=== PATIENT | female | born 1980 | race African-American/Black ===

== ENCOUNTER 2016-09-23 11:43 | Emergency (ER) | payer MEDICAID ==
[2013-08-03 15:59] VITALS: BMI 23.9
[~2016-09-23 11:43] MED LIST: IBUPROFEN600 MG PO; NORCO 5/325 TAB1 TA1 PO; PHENERGAN25 M1 PO; PHENERGAN25 MG RC; PRENATAL COMPLE1 TAB PO; TRANDATE100 MG PO; ZOFRAN ODT4 MG/UDTAB PO; ZOFRAN4 MG PO
== END 2016-09-23 15:41 | disposition home or self-care (01) ==
LOC: D.ER 11:43
DX: O21.9 Vomiting of pregnancy, unspecified (principal); E87.6 Hypokalemia

== ENCOUNTER 2016-09-26 10:33 | Emergency (ER) | payer MEDICAID ==
[2013-08-03 15:59] VITALS: BMI 23.9
[2016-09-26 11:45] LABS: BASOPHILS 0.2 % (0.0-2.0); EOSINOPHILS 0.6 % (0-7); HEMATOCRIT 30.6 % (36.0-48.0); HEMOGLOBIN 9.5 g/dL (12-16); IMMATURE GRANULOCYTES 0.2 % (0-5); LYMPHOCYTES 11.3 % (15-50); MCH 24.1 pg (26.0-34.0); MCV 77.7 fL (80.0-100.0); MEAN PLATELET VOLUME 9.7 fL (7.4-10.4); MONOCYTES 2.5 % (2-11); NEUTROPHILS 85.2 % (40-80); PLATELET COUNT 266 10x3/uL (130-400); RBC 3.94 10x6/uL (4.00-5.40); RDW 20.7 % (11.5-14.5); WBC 11.3 10x3/uL (4.8-10.8)
[2016-09-26 11:56] LABS: CALC OSMOLALITY 267 mosm/kg (275-300); CALCIUM 8.9 mg/dL (8.5-10.1); CHLORIDE - SERUM 103 mmol/L (98-107); CREATININE - SERUM 0.7 mg/dL (0.6-1.3); SODIUM 136 mmol/L (136-145); UREA NITROGEN 5 mg/dL (7-18); eGFR NON AFRICAN AMERICAN > 90 mL/min (90-120)
[2016-09-26 12:00] LABS: GLUCOSE 87 mg/dL (74-106)
[2016-09-26 12:11] LABS: APPEARANCE SLT CLOUDY (CLEAR); COLOR YELLOW (YELLOW)
[2016-09-26 12:12] LABS: BILIRUBIN NEGATIVE (NEGATIVE); GLUCOSE NEGATIVE (NEGATIVE); KETONE NEGATIVE (NEGATIVE); LEUKOCYTE ESTERASE 1+ (NEGATIVE); NITRITE NEGATIVE (NEGATIVE); PROTEIN NEGATIVE (NEGATIVE); UROBILINOGEN NORMAL (NORMAL)
[2016-09-26 12:13] LABS: BACTERIA MANY /hpf (NONE SEEN); MUCUS >1+ /lpf (NONE SEEN)
== END 2016-09-26 13:53 | disposition home or self-care (01) ==
LOC: D.ER 10:33
PROVIDERS: Emergency Medicine Emergency Medical Services
DX: R11.10 Vomiting, unspecified (principal); Z3A.08 8 weeks gestation of pregnancy

== ENCOUNTER 2017-10-27 17:53 | Emergency (ER) | payer MEDICAID ==
[2013-08-03 15:59] VITALS: BMI 23.9
== END 2017-10-27 21:30 | disposition home or self-care (01) ==
LOC: D.ER 17:53
DX: B34.9 Viral infection, unspecified (principal); J06.9 Acute upper respiratory infection, unspecified

== ENCOUNTER 2018-05-26 15:59 | Emergency (ER) | payer MEDICAID ==
[~2018-05-26] VITALS: Ht 167.6 cm; Wt 62.3 kg
[2018-05-26 16:33] VITALS: Ht 167.6 cm; Wt 62.3 kg
[2018-05-26 18:15] VITALS: BP 165/114
== END 2018-05-26 18:15 | disposition left against medical advice (07) ==
LOC: D.ER 15:59
DX: I10 Essential (primary) hypertension (principal); F91.9 Conduct disorder, unspecified; Z85.41 Personal history of malignant neoplasm of cervix uteri

== ENCOUNTER 2019-04-12 12:09 | Emergency (ER) | payer MEDICAID ==
[~2019-04-12] VITALS: Ht 167.6 cm; Wt 61.8 kg
[2019-04-12 12:43] VITALS: Ht 167.6 cm; Wt 61.8 kg
[2019-04-12 13:02] LABS: BASOPHILS 0.3 % (0-2); EOSINOPHILS 1.9 % (0-7); HEMATOCRIT 28.4 % (36.0-48.0); IMMATURE GRANULOCYTES 0.2 % (0-5); LYMPHOCYTES 22.2 % (15-50); MCH 22.7 pg (26.0-34.0); MCHC 31.7 g/dL (31.0-37.0); MCV 71.5 fL (80.0-100.0); MEAN PLATELET VOLUME 8.6 fL (7.4-10.4); MONOCYTES 4.3 % (2-11); NEUTROPHILS 71.1 % (40-80); PLATELET COUNT 264 10x3/uL (130-400); RBC 3.97 10x6/uL (4.00-5.40); WBC 6.5 10x3/uL (4.8-10.8)
[2019-04-12 13:32] LABS: HCG SERUM POSITIVE (NEGATIVE)
[2019-04-12 13:45] LABS: ALBUMIN 3.9 g/dL (3.4-5.0); ALKALINE PHOSPHATASE 51 U/L (46-116); ALT (SGPT) 16 U/L (10-68); BILIRUBIN - TOTAL 0.45 mg/dL (0.2-1.3); CALC OSMOLALITY 271 mosm/kg (275-300); CALCIUM 8.6 mg/dL (8.5-10.1); CARBON DIOXIDE 24.4 mmol/L (21.0-32.0); CHLORIDE - SERUM 104 mmol/L (98-107); CREATININE - SERUM 0.9 mg/dL (0.6-1.3); GLUCOSE 82 mg/dL (74-106); POTASSIUM - SERUM 3.8 mmol/L (3.5-5.1); PROTEIN - SERUM 7.7 g/dL (6.4-8.2); SODIUM 137 mmol/L (136-145); UREA NITROGEN 10 mg/dL (7-18); eGFR NON AFRICAN AMERICAN 75 mL/min (90-120)
[2019-04-12 13:48] LABS: AMYLASE - SERUM 98 U/L (25-115); LIPASE 241 U/L (73-393); TROPONIN-I < 0.017 ng/mL (0.000-0.060)
[2019-04-12 16:23] LABS: APPEARANCE CLEAR (CLEAR); COLOR YELLOW (YELLOW); SPECIFIC GRAVITY 1.015 (1.005-1.020)
[2019-04-12 16:24] LABS: BILIRUBIN NEGATIVE (NEGATIVE); GLUCOSE NEGATIVE (NEGATIVE); KETONE MODERATE mg/dL (NEGATIVE); NITRITE NEGATIVE (NEGATIVE); PROTEIN NEGATIVE (NEGATIVE); UROBILINOGEN NORMAL (NORMAL)
[2019-04-12 16:25] LABS: BACTERIA FEW /hpf (NONE SEEN); EPITHELIAL CELLS OCC /hpf (0-5); WHITE CELLS - URINE OCC /hpf (0-5)
[2019-04-12 17:59] VITALS: BP 171/111
== END 2019-04-12 17:25 | disposition home or self-care (01) ==
LOC: D.ER 12:09
PROVIDERS: Family Medicine
DX: Z32.01 Encounter for pregnancy test, result positive (principal)

== ENCOUNTER 2019-04-20 08:54 | Emergency (ER) | payer MEDICAID ==
[~2019-04-20] VITALS: Ht 167.6 cm; Wt 62.3 kg
[2019-04-20 09:00] VITALS: Ht 167.6 cm; Wt 62.3 kg
[2019-04-20 09:29] LABS: BASOPHILS 0.3 % (0-2); EOSINOPHILS 1.8 % (0-7); HEMOGLOBIN 9.5 g/dL (12-16); IMMATURE GRANULOCYTES 0.1 % (0-5); LYMPHOCYTES 20.9 % (15-50); MCH 23.2 pg (26.0-34.0); MCHC 31.7 g/dL (31.0-37.0); MCV 73.2 fL (80.0-100.0); MEAN PLATELET VOLUME 9.5 fL (7.4-10.4); NEUTROPHILS 74.9 % (40-80); PLATELET COUNT 297 10x3/uL (130-400); RDW 21.1 % (11.5-14.5); WBC 7.6 10x3/uL (4.8-10.8)
[2019-04-20 09:45] LABS: APPEARANCE HAZY (CLEAR); BILIRUBIN NEGATIVE (NEGATIVE); COLOR YELLOW (YELLOW); GLUCOSE NEGATIVE (NEGATIVE); KETONE NEGATIVE (NEGATIVE); NITRITE NEGATIVE (NEGATIVE); PROTEIN NEGATIVE (NEGATIVE); SPECIFIC GRAVITY 1.015 (1.005-1.020); UROBILINOGEN NORMAL (NORMAL)
[2019-04-20 09:47] LABS: BACTERIA FEW /hpf (NONE SEEN); EPITHELIAL CELLS 0-5 /hpf (0-5); MUCUS <1+ /lpf (NONE SEEN); RED CELLS - URINE 0-5 /hpf (0-5); WHITE CELLS - URINE 0-5 /hpf (0-5)
[2019-04-20] MEDS ORDERED: FERROUS GLUCON324 MG PO (10:45)
[2019-04-20 12:10] VITALS: BP 140/97
== END 2019-04-20 11:58 | disposition home or self-care (01) ==
LOC: D.ER 08:54
PROVIDERS: Emergency Medicine
DX: O20.0 Threatened abortion (principal); Z3A.00 Weeks of gestation of pregnancy not specified; D50.8 Other iron deficiency anemias; A59.9 Trichomoniasis, unspecified

== ENCOUNTER 2019-05-04 09:58 | Emergency (ER) | payer MEDICAID ==
[~2019-05-04] VITALS: Ht 167.6 cm; Wt 60.5 kg
[~2019-05-04 09:58] MED LIST changes: +FERROUS GLUCON324 MG PO
[2019-05-04 10:15] VITALS: Ht 167.6 cm; Wt 60.5 kg
[2019-05-04] MEDS ORDERED: PRENAVITE1 TAB PO (10:17)
[2019-05-04 10:45] LABS: BASOPHILS 0.3 % (0-2); EOSINOPHILS 1.4 % (0-7); HEMATOCRIT 28.4 % (36.0-48.0); IMMATURE GRANULOCYTES 0.1 % (0-5); LYMPHOCYTES 19.7 % (15-50); MCH 23.1 pg (26.0-34.0); MCHC 31.7 g/dL (31.0-37.0); MEAN PLATELET VOLUME 9.3 fL (7.4-10.4); NEUTROPHILS 74.5 % (40-80); PLATELET COUNT 280 10x3/uL (130-400); RBC 3.89 10x6/uL (4.00-5.40); RDW 20.8 % (11.5-14.5)
[2019-05-04 10:57] LABS: ALBUMIN 3.8 g/dL (3.4-5.0); ALKALINE PHOSPHATASE 46 U/L (46-116); ALT (SGPT) 10 U/L (10-68); BILIRUBIN - TOTAL 0.45 mg/dL (0.2-1.3); CALC OSMOLALITY 275 mosm/kg (275-300); CALCIUM 9.5 mg/dL (8.5-10.1); CARBON DIOXIDE 21.3 mmol/L (21.0-32.0); CHLORIDE - SERUM 105 mmol/L (98-107); CREATININE - SERUM 0.8 mg/dL (0.6-1.3); GLUCOSE 86 mg/dL (74-106); POTASSIUM - SERUM 3.6 mmol/L (3.5-5.1); PROTEIN - SERUM 7.7 g/dL (6.4-8.2); SODIUM 139 mmol/L (136-145); UREA NITROGEN 11 mg/dL (7-18); eGFR NON AFRICAN AMERICAN 86 mL/min (90-120)
[2019-05-04 11:02] LABS: APPEARANCE SL CLDY (CLEAR); COLOR YELLOW (YELLOW); SPECIFIC GRAVITY 1.005 (1.005-1.020)
[2019-05-04 11:03] LABS: BACTERIA MODERATE /hpf (NONE SEEN); BILIRUBIN NEGATIVE (NEGATIVE); GLUCOSE NEGATIVE (NEGATIVE); KETONE NEGATIVE (NEGATIVE); MUCUS <1+ /lpf (NONE SEEN); NITRITE NEGATIVE (NEGATIVE); PROTEIN NEGATIVE (NEGATIVE); RED CELLS - URINE 0-5 /hpf (0-5); WHITE CELLS - URINE 0-5 /hpf (0-5)
[2019-05-04] MEDS ORDERED: ZOFRAN ODT4 MG/UDTAB PO (11:55)
[2019-05-04 12:55] VITALS: BP 163/95
== END 2019-05-04 12:51 | disposition home or self-care (01) ==
LOC: D.ER 09:58
PROVIDERS: Family Medicine
DX: O98.311 Other infections with a predominantly sexual mode of transmission complicating pregnancy, first trimester (principal); A59.9 Trichomoniasis, unspecified; Z3A.08 8 weeks gestation of pregnancy

== ENCOUNTER 2019-05-16 15:37 | Emergency (ER) | payer MEDICAID ==
[~2019-05-16] VITALS: Ht 167.6 cm; Wt 59.1 kg
[~2019-05-16 15:37] MED LIST changes: +PRENAVITE1 TAB PO
[2019-05-16 15:42] VITALS: Ht 167.6 cm; Wt 59.1 kg
[2019-05-16 15:59] LABS: BASOPHILS 0.2 % (0-2); EOSINOPHILS 1.3 % (0-7); HEMATOCRIT 28.2 % (36.0-48.0); HEMOGLOBIN 9.1 g/dL (12-16); IMMATURE GRANULOCYTES 0.1 % (0-5); LYMPHOCYTES 21.9 % (15-50); MCH 23.8 pg (26.0-34.0); MCHC 32.3 g/dL (31.0-37.0); MCV 73.8 fL (80.0-100.0); MEAN PLATELET VOLUME 8.8 fL (7.4-10.4); MONOCYTES 4.4 % (2-11); NEUTROPHILS 72.1 % (40-80); PLATELET COUNT 268 10x3/uL (130-400); RBC 3.82 10x6/uL (4.00-5.40); RDW 20.3 % (11.5-14.5); WBC 8.7 10x3/uL (4.8-10.8)
[2019-05-16 16:00] LABS: APPEARANCE CLEAR (CLEAR); BILIRUBIN NEGATIVE (NEGATIVE); COLOR YELLOW (YELLOW); GLUCOSE NEGATIVE (NEGATIVE); KETONE NEGATIVE (NEGATIVE); NITRITE NEGATIVE (NEGATIVE); PROTEIN NEGATIVE (NEGATIVE); SPECIFIC GRAVITY 1.025 (1.005-1.020); UROBILINOGEN NORMAL (NORMAL)
[2019-05-16 16:01] LABS: BACTERIA FEW /hpf (NONE SEEN); EPITHELIAL CELLS 0-5 /hpf (0-5); RED CELLS - URINE 0-5 /hpf (0-5); WHITE CELLS - URINE 0-5 /hpf (0-5)
[2019-05-16 16:11] LABS: ALBUMIN 3.5 g/dL (3.4-5.0); ALKALINE PHOSPHATASE 43 U/L (46-116); ALT (SGPT) 13 U/L (10-68); BILIRUBIN - TOTAL 0.19 mg/dL (0.2-1.3); CALC OSMOLALITY 267 mosm/kg (275-300); CALCIUM 9.3 mg/dL (8.5-10.1); CARBON DIOXIDE 24.4 mmol/L (21.0-32.0); CHLORIDE - SERUM 104 mmol/L (98-107); CREATININE - SERUM 0.7 mg/dL (0.6-1.3); GLUCOSE 87 mg/dL (74-106); POTASSIUM - SERUM 3.8 mmol/L (3.5-5.1); PROTEIN - SERUM 7.5 g/dL (6.4-8.2); SODIUM 135 mmol/L (136-145); UREA NITROGEN 11 mg/dL (7-18); eGFR NON AFRICAN AMERICAN > 90 mL/min (90-120)
[2019-05-16 16:35] LABS: HCG - QUANTITATIVE (MATERNAL) 125725 mIU/mL
[2019-05-16] MEDS ORDERED: ZOFRAN ODT4 MG/UDTAB PO (17:23)
[2019-05-16 17:25] VITALS: BP 122/72
== END 2019-05-16 17:26 | disposition home or self-care (01) ==
LOC: D.ER 15:37
PROVIDERS: Family Medicine
DX: O20.0 Threatened abortion (principal); D64.9 Anemia, unspecified; A59.9 Trichomoniasis, unspecified

== ENCOUNTER 2019-05-30 07:22 | Emergency (ER) | payer MEDICAID ==
[2019-05-30 07:29] VITALS: Ht 167.6 cm
[2019-05-30 08:21] LABS: APPEARANCE HAZY (CLEAR); BILIRUBIN NEGATIVE (NEGATIVE); COLOR YELLOW (YELLOW); GLUCOSE NEGATIVE (NEGATIVE); KETONE SMALL mg/dL (NEGATIVE); NITRITE NEGATIVE (NEGATIVE); PROTEIN TRACE mg/dL (NEGATIVE); UROBILINOGEN NORMAL (NORMAL)
[2019-05-30 08:27] LABS: BACTERIA MODERATE /hpf (NONE SEEN); RED CELLS - URINE 0-5 /hpf (0-5)
[2019-05-30] MEDS ORDERED: PHENERGAN25 MG RC (08:30)
[2019-05-30 08:57] VITALS: BP 115/68
== END 2019-05-30 08:57 | disposition home or self-care (01) ==
LOC: D.ER 07:22
PROVIDERS: Emergency Medicine
DX: O21.9 Vomiting of pregnancy, unspecified (principal); Z3A.11 11 weeks gestation of pregnancy

== ENCOUNTER 2019-06-08 11:00 | Observation (INO) | payer MEDICAID ==
[~2019-06-08] VITALS: Ht 167.6 cm; Wt 59.9 kg
[2019-06-08 11:31] LABS: BASOPHILS 0.1 % (0-2); EOSINOPHILS 0.5 % (0-7); HEMATOCRIT 29.6 % (36.0-48.0); HEMOGLOBIN 9.6 g/dL (12-16); IMMATURE GRANULOCYTES 0.3 % (0-5); LYMPHOCYTES 11.9 % (15-50); MCH 24.4 pg (26.0-34.0); MCHC 32.4 g/dL (31.0-37.0); MCV 75.3 fL (80.0-100.0); MEAN PLATELET VOLUME 9.2 fL (7.4-10.4); NEUTROPHILS 85.2 % (40-80); PLATELET COUNT 287 10x3/uL (130-400); RBC 3.93 10x6/uL (4.00-5.40); RDW 19.6 % (11.5-14.5); WBC 13.1 10x3/uL (4.8-10.8)
[2019-06-08 12:00] LABS: ALBUMIN 3.4 g/dL (3.4-5.0); ALKALINE PHOSPHATASE 52 U/L (46-116); ALT (SGPT) 15 U/L (10-68); AMYLASE - SERUM 144 U/L (25-115); BILIRUBIN - TOTAL 0.23 mg/dL (0.2-1.3); CALC OSMOLALITY 276 mosm/kg (275-300); CALCIUM 8.7 mg/dL (8.5-10.1); CARBON DIOXIDE 24.8 mmol/L (21.0-32.0); CHLORIDE - SERUM 103 mmol/L (98-107); CREATININE - SERUM 0.7 mg/dL (0.6-1.3); GLUCOSE 97 mg/dL (74-106); LIPASE 337 U/L (73-393); PROTEIN - SERUM 7.8 g/dL (6.4-8.2); SODIUM 140 mmol/L (136-145); UREA NITROGEN 7 mg/dL (7-18); eGFR NON AFRICAN AMERICAN > 90 mL/min (90-120)
[2019-06-08 12:01] LABS: TROPONIN-I < 0.017 ng/mL (0.000-0.060)
[2019-06-08 12:30] LABS: APPEARANCE SL CLDY (CLEAR); BACTERIA MODERATE /hpf (NONE SEEN); BILIRUBIN NEGATIVE (NEGATIVE); COLOR YELLOW (YELLOW); GLUCOSE NEGATIVE (NEGATIVE); KETONE NEGATIVE (NEGATIVE); NITRITE NEGATIVE (NEGATIVE); PROTEIN TRACE mg/dL (NEGATIVE); RED CELLS - URINE RARE /hpf (0-5); SPECIFIC GRAVITY 1.005 (1.005-1.020); UROBILINOGEN NORMAL (NORMAL); WHITE CELLS - URINE 0-5 /hpf (0-5)
[2019-06-08 12:31] LABS: MUCUS <1+ /lpf (NONE SEEN)
[2019-06-08 12:41] VITALS: BP 140/89
--- NOTE | 2019-06-08 13:56 | NUR ---
REPROT GIVEN TO ARNOL RENTERIA IN L&D. PT COULD NOT BE TRANSFERED TO L & D UNTIL FAMILY CME TO NARRATIVE WRITER 4 YEAR OLD CHILD THAT WAS LEFT IN ROOM WITH MOM. TRANSFERED PENDING
--- NOTE | 2019-06-08 14:58 | NUR ---
PT FAMILY HERE TO PAYROLL DIRECTOR CHILD. PT TRANSPORTED TO L & D
[2019-06-08] MEDS ORDERED: PHENERGAN25 M1 PO (15:11)
[2019-06-08 15:13] VITALS: BP 166/93; Ht 167.6 cm; Wt 59.9 kg
[2019-06-08 19:24] VITALS: BP 152/93
--- NOTE | 2019-06-08 19:24 | NUR ---
PT REC'D IN BED AT THIS TIME. DENIES PAIN. IV TO THE RT UPPER ARM INFUSING AT 250 ML/HR. SITE CLEAR AND PATNET AT THIS TIME. LUNGS CLEAR. BS+. PT STATES THAT SHE IS NOT PUSHING CLEAR LIQUIDS AT THIS TIME BECAUSE SHE IS JUST GLAD NOT TO BE VOMITING. PT GIVEN A POPSICLE AND SPRITE EARLIER. 80% OF THE POPSICLE IS GONE AT THIS TIME. WILL CONTINUE TO MONITOR. Radha DIEGO RN
--- NOTE | 2019-06-08 19:32 | NUR ---
192 ALDOMET GIVEN AT THIS TIME ORDERED. WILL MONITOR BPS THIS SHIFT. Radha DIEGO RN
--- NOTE | 2019-06-08 21:10 | NUR ---
PT RESTING AT THIS TIME. NEW IV BAD UP AT THIS TIME. RATE DECREASED TO 150 ML/HR. Radha DIEGO RN
--- NOTE | 2019-06-08 23:15 | NUR ---
PT IN BED RESTING AT THIS TIME. NO COMPLAINTS. NO VOMITING NOTED. Radha DIEGO, RN
[2019-06-09 00:34] VITALS: BP 129/75
--- NOTE | 2019-06-09 00:34 | NUR ---
PT RESTING WITH EYES CLOSED, AROUSES TO SOFT VERBAL STIMULATION, VS OBTAINED, PT UP TO BR WITH ASSISTANCE, GAIT STEADY, VOIDED 300 MLS OF LIGHT YELLOW URINE WITH NO DIFFICULTY, PT BACK TO BED, ADM REGLAN PER MD ORDERS, SEE EMAR, PT DENIES N/V, PT WAS COVERING UP WITH BATH BLANKETS, SHEET AND REGULAR BLANKET PROVIDED, PT DENIES FURTHER NEEDS OR PAIN AT THIS TIME, BED IN LOW POSITION, SIDE RAILS X 2, CALL LIGHT IN REACH
--- NOTE | 2019-06-09 02:05 | NUR ---
PT RESTING WITH EYES CLOSED, RESP QUIET, NO DISTRESS NOTED, LEFT UNDISTURBED AT THIS TIME, BED IN LOW POSITION, SIDE RAILS X 2, CALL LIGHT IN REACH
--- NOTE | 2019-06-09 02:16 | NUR ---
PT RESTING WITH EYES CLOSED, RESP QUIET, NO DISTRESS NOTED, LEFT UNDISTURBED AT THIS TIME
[2019-06-09 03:36] VITALS: BP 162/89
--- NOTE | 2019-06-09 03:36 | NUR ---
YANELIS DIEGO RN TO ROOM, OBTAINED VS
--- NOTE | 2019-06-09 05:27 | NUR ---
PT AWAKE, GETTING BACK INTO BED, REPORTS "I HAD TO PEE", EMPTIED [place] HAT, PUMPS CLEARED, PT STATES "I AM READY TO GO HOME", PT DENIES PAIN OR N/V
--- NOTE | 2019-06-09 06:29 | NUR ---
PT AWAKE, ADM REGLAN SIVP PER MD ORDERS, SEE EMAR, PT DENIES NEEDS OR PAIN AT THIS TIME
--- NOTE | 2019-06-09 06:49 | NUR ---
PT MEDICATED WITH ZOFRAN FOR NAUSEA. PT STATES THAT IT IS NOT GREEN LIKE IT WAS. IT'S JUST FOAM. Radha DIEGO RN
== END 2019-06-09 10:09 | disposition home or self-care (01) ==
LOC: D.ER 11:00 → D.LD 13:14 → OBSVTIME 13:17 → D.LD 06-09 10:09
PROVIDERS: Family Medicine; ADMIT Obstetrics & Gynecology; ATTEND Obstetrics & Gynecology
DX: O21.0 Mild hyperemesis gravidarum (principal); Z3A.12 12 weeks gestation of pregnancy; O10.911 Unspecified pre-existing hypertension complicating pregnancy, first trimester

== ENCOUNTER 2019-06-30 18:28 | Emergency (ER) | payer MEDICAID ==
[~2019-06-30] VITALS: Ht 167.6 cm; Wt 61.8 kg
[2019-06-30 18:48] VITALS: Ht 167.6 cm; Wt 61.8 kg
[2019-06-30] MEDS ORDERED: ZOFRAN4 MG PO (18:50)
[2019-06-30] MEDS ORDERED: PEPCID AC20 MG PO (18:50)
[2019-06-30 19:16] LABS: BASOPHILS 0.1 % (0-2); EOSINOPHILS 0 % (0-7); HEMATOCRIT 26.6 % (36.0-48.0); HEMOGLOBIN 8.4 g/dL (12-16); IMMATURE GRANULOCYTES 0.3 % (0-5); LYMPHOCYTES 6.5 % (15-50); MCH 24.3 pg (26.0-34.0); MCHC 31.6 g/dL (31.0-37.0); MCV 77.1 fL (80.0-100.0); MEAN PLATELET VOLUME 9.6 fL (7.4-10.4); MONOCYTES 2.3 % (2-11); NEUTROPHILS 90.8 % (40-80); PLATELET COUNT 256 10x3/uL (130-400); RBC 3.45 10x6/uL (4.00-5.40)
[2019-06-30 19:43] LABS: ALBUMIN 3.1 g/dL (3.4-5.0); ALKALINE PHOSPHATASE 49 U/L (46-116); ALT (SGPT) 10 U/L (10-68); BILIRUBIN - TOTAL 0.43 mg/dL (0.2-1.3); CALC OSMOLALITY 267 mosm/kg (275-300); CARBON DIOXIDE 22.9 mmol/L (21.0-32.0); CHLORIDE - SERUM 102 mmol/L (98-107); CREATININE - SERUM 0.7 mg/dL (0.6-1.3); GLUCOSE 88 mg/dL (74-106); POTASSIUM - SERUM 3.6 mmol/L (3.5-5.1); PROTEIN - SERUM 6.7 g/dL (6.4-8.2); SODIUM 135 mmol/L (136-145); UREA NITROGEN 9 mg/dL (7-18); eGFR NON AFRICAN AMERICAN > 90 mL/min (90-120)
[2019-06-30 21:07] LABS: APPEARANCE CLEAR (CLEAR); BILIRUBIN NEGATIVE (NEGATIVE); COLOR YELLOW (YELLOW); GLUCOSE NEGATIVE (NEGATIVE); KETONE LARGE mg/dL (NEGATIVE); NITRITE NEGATIVE (NEGATIVE); PROTEIN NEGATIVE (NEGATIVE); SPECIFIC GRAVITY 1.025 (1.005-1.020); UROBILINOGEN NORMAL (NORMAL)
[2019-06-30 21:08] LABS: BACTERIA MODERATE /hpf (NEGATIVE); EPITHELIAL CELLS 0-5 /hpf (0-5); RED CELLS - URINE 0-5 /hpf (0-5)
[2019-06-30 21:09] LABS: MUCUS <1+ /lpf (NONE SEEN)
[2019-06-30] MEDS ORDERED: ZOFRAN ODT4 MG/UDTAB PO (21:18)
[2019-06-30] MEDS ORDERED: KEFLEX500 MG PO (21:18)
[2019-06-30] MEDS ORDERED: FLAGYL500 MG PO (21:18)
[2019-06-30 21:27] VITALS: BP 133/89
[2019-08-11] MEDS ORDERED: PRENAVITE1 TAB PO (16:58)
== END 2019-06-30 21:28 | disposition home or self-care (01) ==
LOC: D.ER 18:28
PROVIDERS: Family Medicine
DX: O23.40 Unspecified infection of urinary tract in pregnancy, unspecified trimester (principal); E86.0 Dehydration

== ENCOUNTER → 2019-08-11 16:50 | Outpatient (CLI) | payer MEDICAID ==
[2019-06-30 18:48] VITALS: BMI 22.0
[~2019-08-11 16:50] MED LIST changes: +FLAGYL500 MG PO; +KEFLEX500 MG PO; +PEPCID AC20 MG PO
[2019-08-11 17:25] LABS: APPEARANCE CLEAR (CLEAR); BILIRUBIN NEGATIVE (NEGATIVE); COLOR YELLOW (YELLOW); GLUCOSE NEGATIVE (NEGATIVE); KETONE MODERATE mg/dL (NEGATIVE); NITRITE NEGATIVE (NEGATIVE); PROTEIN TRACE mg/dL (NEGATIVE); UROBILINOGEN NORMAL (NORMAL)
[2019-08-11 17:26] LABS: EPITHELIAL CELLS 0-5 /hpf (0-5); RED CELLS - URINE 0-5 /hpf (0-5); WHITE CELLS - URINE 25-50 /hpf (NEGATIVE)
[2019-08-11 17:27] LABS: BACTERIA MODERATE /hpf (NEGATIVE)
== END | disposition home or self-care (01) ==
LOC: D.LDO 16:50
PROVIDERS: ATTEND Obstetrics & Gynecology
DX: O26.899 Other specified pregnancy related conditions, unspecified trimester (principal); Z3A.00 Weeks of gestation of pregnancy not specified; M54.9 Dorsalgia, unspecified; R10.9 Unspecified abdominal pain

== ENCOUNTER 2019-09-13 16:08 | Outpatient (CLI) | payer MEDICAID ==
[2019-06-30 18:48] VITALS: BMI 22.0
[2019-09-13 17:13] LABS: APPEARANCE CLEAR (CLEAR); BILIRUBIN NEGATIVE (NEGATIVE); COLOR YELLOW (YELLOW); GLUCOSE NEGATIVE (NEGATIVE); KETONE MODERATE mg/dL (NEGATIVE); NITRITE NEGATIVE (NEGATIVE); PROTEIN NEGATIVE (NEGATIVE); UROBILINOGEN NORMAL (NORMAL)
[2019-09-13 17:14] LABS: EPITHELIAL CELLS OCC /hpf (0-5); RED CELLS - URINE OCC /hpf (0-5); WHITE CELLS - URINE 0-5 /hpf (NEGATIVE)
[2019-09-13 17:15] LABS: BACTERIA FEW /hpf (NEGATIVE)
[2019-09-13 18:40] LABS: BASOPHILS 0.1 % (0-2); EOSINOPHILS 0.1 % (0-7); HEMATOCRIT 22.8 % (36.0-48.0); IMMATURE GRANULOCYTES 0.3 % (0-5); LYMPHOCYTES 5.4 % (15-50); MCH 23.3 pg (26.0-34.0); MCHC 30.7 g/dL (31.0-37.0); MONOCYTES 2.4 % (2-11); NEUTROPHILS 91.7 % (40-80); PLATELET COUNT 210 10x3/uL (130-400); RDW 17.6 % (11.5-14.5); WBC 11.2 10x3/uL (4.8-10.8)
[2019-09-13 18:48] LABS: CALC OSMOLALITY 270 mosm/kg (275-300); CALCIUM 8.1 mg/dL (8.5-10.1); CARBON DIOXIDE 20.9 mmol/L (21.0-32.0); CHLORIDE - SERUM 105 mmol/L (98-107); CREATININE - SERUM 0.6 mg/dL (0.6-1.3); GLUCOSE 79 mg/dL (74-106); POTASSIUM - SERUM 3.6 mmol/L (3.5-5.1); SODIUM 137 mmol/L (136-145); UREA NITROGEN 8 mg/dL (7-18); eGFR NON AFRICAN AMERICAN > 90 mL/min (90-120)
[2019-09-13 18:54] LABS: ALBUMIN 2.6 g/dL (3.4-5.0); ALKALINE PHOSPHATASE 51 U/L (46-116); ALT (SGPT) 9 U/L (10-68); AMYLASE - SERUM 109 U/L (25-115); BILIRUBIN - TOTAL 0.37 mg/dL (0.2-1.3); LIPASE 154 U/L (73-393); PROTEIN - SERUM 6.3 g/dL (6.4-8.2)
--- NOTE | 2019-09-13 20:55 | NUR ---
PT SITTING UP IN BED EATING OUTSIDE FOOD. ICE AND LINENS FOR SIGNIFICANT OTHER PROVIDED PER PT REQUEST. JONAS CATHETER REMOVED WITHOUT INCIDENT WITH 75ML DARK YELLOW URINE NOTED IN UROMETER. WILL AMBULATE PT SOON.
[2019-09-13 21:34] LABS: APPEARANCE CLEAR (CLEAR); COLOR YELLOW (YELLOW); NITRITE NEGATIVE (NEGATIVE); PROTEIN NEGATIVE (NEGATIVE); SPECIFIC GRAVITY 1.015 (1.005-1.020)
[2019-09-13 21:35] LABS: BILIRUBIN NEGATIVE (NEGATIVE); GLUCOSE 1000 mg/dL (NEGATIVE); KETONE MODERATE mg/dL (NEGATIVE); UROBILINOGEN NORMAL (NORMAL)
[2019-09-13 21:36] LABS: BACTERIA FEW /hpf (NEGATIVE); EPITHELIAL CELLS 0-5 /hpf (0-5); RED CELLS - URINE 0-5 /hpf (0-5)
[2019-09-14 10:20] LABS: APPEARANCE SL CLDY (CLEAR); BILIRUBIN NEGATIVE (NEGATIVE); COLOR DK YELLOW (YELLOW); GLUCOSE NEGATIVE (NEGATIVE); KETONE SMALL mg/dL (NEGATIVE); NITRITE NEGATIVE (NEGATIVE); PROTEIN NEGATIVE (NEGATIVE); SPECIFIC GRAVITY 1.015 (1.005-1.020)
[2019-09-14 10:21] LABS: BACTERIA FEW /hpf (NEGATIVE); EPITHELIAL CELLS 0-5 /hpf (0-5); RED CELLS - URINE OCC /hpf (0-5)
== END 2019-09-14 13:15 | disposition home or self-care (01) ==
LOC: D.LDO 16:08 → D.LD 22:18 → D.LDO 09-14 13:15
PROVIDERS: ATTEND Obstetrics & Gynecology
DX: O26.899 Other specified pregnancy related conditions, unspecified trimester (principal); Z3A.00 Weeks of gestation of pregnancy not specified; R10.9 Unspecified abdominal pain; R11.2 Nausea with vomiting, unspecified

== ENCOUNTER → 2019-09-27 18:28 | Outpatient (CLI) | payer MEDICAID ==
[2019-06-30 18:48] VITALS: BMI 22.0
[2019-09-27 19:09] LABS: BASOPHILS 0.2 % (0-2); EOSINOPHILS 1.4 % (0-7); HEMATOCRIT 27.5 % (36.0-48.0); HEMOGLOBIN 8.7 g/dL (12-16); IMMATURE GRANULOCYTES 0.4 % (0-5); LYMPHOCYTES 14.6 % (15-50); MCH 25.1 pg (26.0-34.0); MCHC 31.6 g/dL (31.0-37.0); MCV 79.3 fL (80.0-100.0); MEAN PLATELET VOLUME 9.4 fL (7.4-10.4); MONOCYTES 5.1 % (2-11); NEUTROPHILS 78.3 % (40-80); PLATELET COUNT 238 10x3/uL (130-400); RBC 3.47 10x6/uL (4.00-5.40); RDW 18.2 % (11.5-14.5); WBC 10.3 10x3/uL (4.8-10.8)
[2019-09-27 19:43] LABS: CALC OSMOLALITY 268 mosm/kg (275-300); CALCIUM 8.3 mg/dL (8.5-10.1); CARBON DIOXIDE 21.2 mmol/L (21.0-32.0); CHLORIDE - SERUM 105 mmol/L (98-107); CREATININE - SERUM 0.6 mg/dL (0.6-1.3); GLUCOSE 77 mg/dL (74-106); POTASSIUM - SERUM 3.4 mmol/L (3.5-5.1); SODIUM 136 mmol/L (136-145); UREA NITROGEN 8 mg/dL (7-18); eGFR NON AFRICAN AMERICAN > 90 mL/min (90-120)
[2019-09-27 19:50] LABS: ALBUMIN 2.6 g/dL (3.4-5.0); ALKALINE PHOSPHATASE 55 U/L (46-116); ALT (SGPT) 9 U/L (10-68); BILIRUBIN - DIRECT 0.04 mg/dL (0.00-0.30); BILIRUBIN - INDIRECT 0.06 mg/dL (0.00-1.00); PROTEIN - SERUM 6.2 g/dL (6.4-8.2); URIC ACID 1.6 mg/dL (2.6-7.2)
[2019-09-27 21:13] LABS: APPEARANCE CLEAR (CLEAR); BILIRUBIN NEGATIVE (NEGATIVE); COLOR YELLOW (YELLOW); GLUCOSE NEGATIVE (NEGATIVE); KETONE NEGATIVE (NEGATIVE); NITRITE NEGATIVE (NEGATIVE); PROTEIN NEGATIVE (NEGATIVE); SPECIFIC GRAVITY 1.015 (1.005-1.020); UROBILINOGEN NORMAL (NORMAL)
== END | disposition home or self-care (01) ==
LOC: D.LDO 18:28
PROVIDERS: ATTEND Obstetrics & Gynecology
DX: O26.899 Other specified pregnancy related conditions, unspecified trimester (principal)

== ENCOUNTER → 2019-10-01 20:24 | Outpatient (CLI) | payer OTHER ==
[2019-06-30 18:48] VITALS: BMI 22.0
[2019-10-01 21:15] LABS: UDS - AMPHET NEGATIVE QUAL (NEGATIVE); UDS - BARB NEGATIVE QUAL (NEGATIVE); UDS - BENZO NEGATIVE QUAL (NEGATIVE); UDS - COCAINE NEGATIVE QUAL (NEGATIVE); UDS - OPIATE NEGATIVE QUAL (NEGATIVE); UDS - PCP NEGATIVE QUAL (NEGATIVE); UDS - THC POSITIVE QUAL (NEGATIVE)
[2019-10-01 21:25] LABS: APPEARANCE CLEAR (CLEAR); BILIRUBIN NEGATIVE (NEGATIVE); COLOR YELLOW (YELLOW); GLUCOSE NEGATIVE (NEGATIVE); KETONE SMALL mg/dL (NEGATIVE); NITRITE NEGATIVE (NEGATIVE); PROTEIN NEGATIVE (NEGATIVE); UROBILINOGEN NORMAL (NORMAL)
[2019-10-01 21:27] LABS: BACTERIA FEW /hpf (NEGATIVE); EPITHELIAL CELLS 0-5 /hpf (0-5); MUCUS <1+ /lpf (NONE SEEN); RED CELLS - URINE 0-5 /hpf (0-5)
== END | disposition home or self-care (01) ==
LOC: D.LDO 20:24
PROVIDERS: ATTEND Obstetrics & Gynecology
DX: O26.899 Other specified pregnancy related conditions, unspecified trimester (principal); R52 Pain, unspecified

== ENCOUNTER 2019-10-09 11:05 | Observation (INO) | payer OTHER ==
[~2019-10-09] VITALS: Ht 167.6 cm; Wt 67.6 kg
[2019-10-09 11:39] LABS: BASOPHILS 0.1 % (0-2); EOSINOPHILS 0.9 % (0-7); HEMOGLOBIN 8.8 g/dL (12-16); IMMATURE GRANULOCYTES 0.5 % (0-5); LYMPHOCYTES 14.7 % (15-50); MCH 24.6 pg (26.0-34.0); MCHC 31.4 g/dL (31.0-37.0); MCV 78.2 fL (80.0-100.0); MEAN PLATELET VOLUME 9.4 fL (7.4-10.4); MONOCYTES 2.5 % (2-11); NEUTROPHILS 81.3 % (40-80); PLATELET COUNT 214 10x3/uL (130-400); RBC 3.58 10x6/uL (4.00-5.40); RDW 18.2 % (11.5-14.5); WBC 10.7 10x3/uL (4.8-10.8)
[2019-10-09 18:52] LABS: BASOPHILS 0.1 % (0-2); EOSINOPHILS 0.9 % (0-7); HEMATOCRIT 32.7 % (36.0-48.0); HEMOGLOBIN 10.5 g/dL (12-16); IMMATURE GRANULOCYTES 0.5 % (0-5); LYMPHOCYTES 15.1 % (15-50); MCH 25.6 pg (26.0-34.0); MCHC 32.1 g/dL (31.0-37.0); MCV 79.8 fL (80.0-100.0); MEAN PLATELET VOLUME 9.1 fL (7.4-10.4); MONOCYTES 3.6 % (2-11); NEUTROPHILS 79.8 % (40-80); PLATELET COUNT 187 10x3/uL (130-400); RDW 18.1 % (11.5-14.5); WBC 10.2 10x3/uL (4.8-10.8)
[2019-10-09 19:07] LABS: APPEARANCE CLEAR (CLEAR); BILIRUBIN NEGATIVE (NEGATIVE); COLOR YELLOW (YELLOW); GLUCOSE NEGATIVE (NEGATIVE); KETONE NEGATIVE (NEGATIVE); NITRITE NEGATIVE (NEGATIVE); PROTEIN TRACE mg/dL (NEGATIVE); UROBILINOGEN NORMAL (NORMAL)
[2019-10-09 19:09] LABS: BACTERIA FEW /hpf (NEGATIVE); EPITHELIAL CELLS 0-5 /hpf (0-5); RED CELLS - URINE 0-5 /hpf (0-5)
[2019-10-09 19:21] LABS: CALC OSMOLALITY 273 mosm/kg (275-300); CALCIUM 7.9 mg/dL (8.5-10.1); CARBON DIOXIDE 25.3 mmol/L (21.0-32.0); CHLORIDE - SERUM 103 mmol/L (98-107); CREATININE - SERUM 0.6 mg/dL (0.6-1.3); GLUCOSE 98 mg/dL (74-106); POTASSIUM - SERUM 3.8 mmol/L (3.5-5.1); SODIUM 138 mmol/L (136-145); UREA NITROGEN 7 mg/dL (7-18); eGFR NON AFRICAN AMERICAN > 90 mL/min (90-120)
[2019-10-09 19:28] LABS: ALBUMIN 2.8 g/dL (3.4-5.0); ALKALINE PHOSPHATASE 60 U/L (46-116); ALT (SGPT) 10 U/L (10-68); BILIRUBIN - DIRECT 0.13 mg/dL (0.00-0.30); BILIRUBIN - INDIRECT 0.61 mg/dL (0.00-1.00); BILIRUBIN - TOTAL 0.74 mg/dL (0.2-1.3); PROTEIN - SERUM 6.3 g/dL (6.4-8.2); URIC ACID 1.6 mg/dL (2.6-7.2)
[2019-10-10 20:23] LABS: PROTEIN - URINE 38.2 mg/dL (0.0-11.9)
[2019-10-10] MEDS ORDERED: PHENERGAN25 MG (22:10)
[2019-10-10 22:11] VITALS: BP 130/74; Ht 167.6 cm; Wt 67.6 kg
== END 2019-10-11 09:14 | disposition home or self-care (01) ==
LOC: D.LDO 11:05 → D.LD 21:34 → OBSVTIME 10-10 21:37 → D.LD 10-10 21:37 → D.LDO 10-10 21:37 → D.LD 10-10 21:37
PROVIDERS: ADMIT Obstetrics & Gynecology; ATTEND Obstetrics & Gynecology
DX: O26.893 Other specified pregnancy related conditions, third trimester (principal); Z3A.30 30 weeks gestation of pregnancy

== ENCOUNTER → 2019-10-14 08:49 | Outpatient (CLI) | payer OTHER ==
[2019-10-10 22:11] VITALS: BMI 24.1
[~2019-10-14 08:49] MED LIST changes: +PHENERGAN25 MG
[2019-10-14 09:50] LABS: BASOPHILS 0.1 % (0-2); EOSINOPHILS 0.8 % (0-7); HEMATOCRIT 28.8 % (36.0-48.0); HEMOGLOBIN 9.2 g/dL (12-16); IMMATURE GRANULOCYTES 0.4 % (0-5); LYMPHOCYTES 13.9 % (15-50); MCH 25.5 pg (26.0-34.0); MCHC 31.9 g/dL (31.0-37.0); MCV 79.8 fL (80.0-100.0); MEAN PLATELET VOLUME 9.4 fL (7.4-10.4); MONOCYTES 2.1 % (2-11); NEUTROPHILS 82.7 % (40-80); PLATELET COUNT 178 10x3/uL (130-400); RBC 3.61 10x6/uL (4.00-5.40); RDW 18.7 % (11.5-14.5); WBC 9.8 10x3/uL (4.8-10.8)
[2019-10-14 09:51] LABS: CALC OSMOLALITY 273 mosm/kg (275-300); CALCIUM 7.9 mg/dL (8.5-10.1); CARBON DIOXIDE 22.4 mmol/L (21.0-32.0); CHLORIDE - SERUM 104 mmol/L (98-107); CREATININE - SERUM 0.7 mg/dL (0.6-1.3); GLUCOSE 108 mg/dL (74-106); POTASSIUM - SERUM 3.6 mmol/L (3.5-5.1); SODIUM 137 mmol/L (136-145); UREA NITROGEN 9 mg/dL (7-18); eGFR NON AFRICAN AMERICAN > 90 mL/min (90-120)
[2019-10-14 09:57] LABS: ALBUMIN 2.6 g/dL (3.4-5.0); ALKALINE PHOSPHATASE 52 U/L (46-116); ALT (SGPT) 10 U/L (10-68); BILIRUBIN - DIRECT 0.05 mg/dL (0.00-0.30); BILIRUBIN - INDIRECT 0.27 mg/dL (0.00-1.00); BILIRUBIN - TOTAL 0.32 mg/dL (0.2-1.3); PROTEIN - SERUM 6.2 g/dL (6.4-8.2); URIC ACID 2.1 mg/dL (2.6-7.2)
== END | disposition home or self-care (01) ==
LOC: D.LDO 08:49
PROVIDERS: ATTEND Obstetrics & Gynecology
DX: O16.9 Unspecified maternal hypertension, unspecified trimester (principal)

== ENCOUNTER 2019-10-16 10:52 | Outpatient (CLI) | payer OTHER ==
[2019-10-10 22:11] VITALS: BMI 24.1
[2019-10-16 11:15] LABS: BASOPHILS 0.1 % (0-2); EOSINOPHILS 0.5 % (0-7); HEMATOCRIT 29.7 % (36.0-48.0); HEMOGLOBIN 9.4 g/dL (12-16); IMMATURE GRANULOCYTES 0.2 % (0-5); LYMPHOCYTES 5.9 % (15-50); MCH 25.3 pg (26.0-34.0); MCHC 31.6 g/dL (31.0-37.0); MCV 80.1 fL (80.0-100.0); MEAN PLATELET VOLUME 8.8 fL (7.4-10.4); MONOCYTES 3.6 % (2-11); NEUTROPHILS 89.7 % (40-80); PLATELET COUNT 137 10x3/uL (130-400); RBC 3.71 10x6/uL (4.00-5.40); RDW 18.6 % (11.5-14.5); WBC 8.1 10x3/uL (4.8-10.8)
[2019-10-16 11:24] LABS: APPEARANCE CLEAR (CLEAR); BILIRUBIN NEGATIVE (NEGATIVE); COLOR YELLOW (YELLOW); GLUCOSE NEGATIVE (NEGATIVE); KETONE LARGE mg/dL (NEGATIVE); NITRITE NEGATIVE (NEGATIVE); PROTEIN NEGATIVE (NEGATIVE)
[2019-10-16 11:25] LABS: AMORPHOUS SEDIMENT <1+ /lpf (NONE SEEN); BACTERIA MANY /hpf (NEGATIVE); MUCUS >1+ /lpf (NONE SEEN); RED CELLS - URINE 0-5 /hpf (0-5)
[2019-10-16 11:32] LABS: CALC OSMOLALITY 270 mosm/kg (275-300); CALCIUM 7.9 mg/dL (8.5-10.1); CARBON DIOXIDE 24.1 mmol/L (21.0-32.0); CHLORIDE - SERUM 104 mmol/L (98-107); CREATININE - SERUM 0.7 mg/dL (0.6-1.3); GLUCOSE 76 mg/dL (74-106); POTASSIUM - SERUM 3.7 mmol/L (3.5-5.1); SODIUM 137 mmol/L (136-145); UREA NITROGEN 8 mg/dL (7-18); eGFR NON AFRICAN AMERICAN > 90 mL/min (90-120)
[2019-10-16 11:37] LABS: ALBUMIN 2.6 g/dL (3.4-5.0); ALKALINE PHOSPHATASE 57 U/L (30-120); ALT (SGPT) 13 U/L (10-68); BILIRUBIN - DIRECT 0.12 mg/dL (0.00-0.30); BILIRUBIN - INDIRECT 0.37 mg/dL (0.00-1.00); BILIRUBIN - TOTAL 0.49 mg/dL (0.2-1.3); PROTEIN - SERUM 6.2 g/dL (6.4-8.2); URIC ACID 2.4 mg/dL (2.6-7.2)
[2019-10-17 11:11] LABS: PROTEIN - URINE 40.3 mg/dL (0.0-11.9)
--- NOTE | 2019-10-17 11:26 | NUR ---
REPORT OF 24 HOUR URINE CALLED TO DR BELTRÁN. ORDERS RECEIVED TO [facility]. TO CALL IN RX FOR FIORICET 1 TAB PO Q 8 HOURS #20 AND LABETALOL 200 MG Q 8 HRS #60 TABS.
== END 2019-10-17 11:45 | disposition home or self-care (01) ==
LOC: D.LDO 10:52 → D.LD 17:41 → D.LDO 10-17 11:45
PROVIDERS: ATTEND Student in an Organized Health Care Education/Training Program
DX: O26.893 Other specified pregnancy related conditions, third trimester (principal); Z3A.31 31 weeks gestation of pregnancy; R51 Headache

== ENCOUNTER → 2019-10-20 10:56 | Outpatient (CLI) | payer OTHER ==
[2019-10-10 22:11] VITALS: BMI 24.1
[2019-10-20 11:44] LABS: BASOPHILS 0.1 % (0-2); EOSINOPHILS 0.8 % (0-7); HEMOGLOBIN 8.9 g/dL (12-16); IMMATURE GRANULOCYTES 0.6 % (0-5); LYMPHOCYTES 12.6 % (15-50); MCH 25.6 pg (26.0-34.0); MCHC 31.8 g/dL (31.0-37.0); MCV 80.5 fL (80.0-100.0); MEAN PLATELET VOLUME 9.7 fL (7.4-10.4); NEUTROPHILS 83.9 % (40-80); RBC 3.48 10x6/uL (4.00-5.40); RDW 19.4 % (11.5-14.5); WBC 9.4 10x3/uL (4.8-10.8)
[2019-10-20 11:59] LABS: CALC OSMOLALITY 272 mosm/kg (275-300); CALCIUM 7.7 mg/dL (8.5-10.1); CARBON DIOXIDE 22.6 mmol/L (21.0-32.0); CHLORIDE - SERUM 105 mmol/L (98-107); CREATININE - SERUM 0.6 mg/dL (0.6-1.3); GLUCOSE 109 mg/dL (74-106); POTASSIUM - SERUM 3.2 mmol/L (3.5-5.1); SODIUM 137 mmol/L (136-145); UREA NITROGEN 7 mg/dL (7-18); eGFR NON AFRICAN AMERICAN > 90 mL/min (90-120)
[2019-10-20 12:08] LABS: ALBUMIN 2.5 g/dL (3.4-5.0); ALKALINE PHOSPHATASE 56 U/L (30-120); ALT (SGPT) 9 U/L (10-68); BILIRUBIN - DIRECT 0.07 mg/dL (0.00-0.30); BILIRUBIN - INDIRECT 0.13 mg/dL (0.00-1.00)
[2019-10-20 12:16] LABS: PLATELET COUNT 177 10x3/uL (130-400)
[2019-10-20 13:58] LABS: APPEARANCE HAZY (CLEAR); BILIRUBIN NEGATIVE (NEGATIVE); COLOR YELLOW (YELLOW); GLUCOSE NEGATIVE (NEGATIVE); KETONE NEGATIVE (NEGATIVE); NITRITE NEGATIVE (NEGATIVE); PROTEIN NEGATIVE (NEGATIVE); RED CELLS - URINE RARE /hpf (0-5); SPECIFIC GRAVITY 1.025 (1.005-1.020); WHITE CELLS - URINE 0-5 /hpf (NEGATIVE)
[2019-10-20 13:59] LABS: BACTERIA FEW /hpf (NEGATIVE); EPITHELIAL CELLS OCC /hpf (0-5)
== END | disposition home or self-care (01) ==
LOC: D.LDO 10:56
PROVIDERS: ATTEND Obstetrics & Gynecology
DX: O10.919 Unspecified pre-existing hypertension complicating pregnancy, unspecified trimester (principal)

== ENCOUNTER 2019-11-06 13:42 | Inpatient (IN) | payer OTHER ==
[~2019-11-06] VITALS: Ht 167.6 cm; Wt 71.2 kg
[~2019-11-06 13:42] MED LIST changes: +NORMODYNE / TR200 MG PO
[2019-11-06 14:34] LABS: COLOR YELLOW (YELLOW)
[2019-11-06 14:35] LABS: APPEARANCE CLEAR (CLEAR); BILIRUBIN NEGATIVE (NEGATIVE); GLUCOSE NEGATIVE (NEGATIVE); KETONE NEGATIVE (NEGATIVE); NITRITE NEGATIVE (NEGATIVE); PROTEIN NEGATIVE (NEGATIVE); SPECIFIC GRAVITY 1.005 (1.005-1.020); UROBILINOGEN NORMAL (NORMAL)
[2019-11-06 14:36] LABS: BACTERIA FEW /hpf (NEGATIVE); EPITHELIAL CELLS OCC /hpf (0-5); RED CELLS - URINE 0-5 /hpf (0-5); UDS - AMPHET NEGATIVE QUAL (NEGATIVE); UDS - BARB POSITIVE QUAL (NEGATIVE); UDS - BENZO NEGATIVE QUAL (NEGATIVE); UDS - COCAINE NEGATIVE QUAL (NEGATIVE); UDS - OPIATE NEGATIVE QUAL (NEGATIVE); UDS - PCP NEGATIVE QUAL (NEGATIVE); UDS - THC POSITIVE QUAL (NEGATIVE)
[2019-11-06 14:43] LABS: BASOPHILS 0.1 % (0-2); EOSINOPHILS 0.5 % (0-7); HEMATOCRIT 29.3 % (36.0-48.0); HEMOGLOBIN 9.2 g/dL (12-16); IMMATURE GRANULOCYTES 0.5 % (0-5); LYMPHOCYTES 13.2 % (15-50); MCH 25.7 pg (26.0-34.0); MCHC 31.4 g/dL (31.0-37.0); MCV 81.8 fL (80.0-100.0); MONOCYTES 4.8 % (2-11); NEUTROPHILS 80.9 % (40-80); PLATELET COUNT 196 10x3/uL (130-400); RBC 3.58 10x6/uL (4.00-5.40); RDW 19.8 % (11.5-14.5); WBC 11.5 10x3/uL (4.8-10.8)
[2019-11-06 14:52] LABS: CALC OSMOLALITY 268 mosm/kg (275-300); CALCIUM 8.5 mg/dL (8.5-10.1); CARBON DIOXIDE 20.9 mmol/L (21.0-32.0); CHLORIDE - SERUM 104 mmol/L (98-107); CREATININE - SERUM 0.5 mg/dL (0.6-1.3); GLUCOSE 78 mg/dL (74-106); POTASSIUM - SERUM 3.8 mmol/L (3.5-5.1); SODIUM 136 mmol/L (136-145); UREA NITROGEN 6 mg/dL (7-18); eGFR NON AFRICAN AMERICAN > 90 mL/min (90-120)
[2019-11-06 14:58] LABS: ALBUMIN 2.9 g/dL (3.4-5.0); ALKALINE PHOSPHATASE 69 U/L (30-120); ALT (SGPT) 13 U/L (10-68); BILIRUBIN - INDIRECT 0.18 mg/dL (0.00-1.00); BILIRUBIN - TOTAL 0.28 mg/dL (0.2-1.3); PROTEIN - SERUM 6.4 g/dL (6.4-8.2); URIC ACID 2.3 mg/dL (2.6-7.2)
[2019-11-07 10:53] VITALS: BP 126/82; BMI 25.4
[2019-11-07 17:41] LABS: PROTEIN - URINE 12.6 mg/dL (0.0-11.9)
[2019-11-07 20:00] VITALS: BP 129/88
--- NOTE | 2019-11-07 20:15 | NUR ---
DR BELTRÁN CALLED, WANTS TO TRANSFER PATIENT TO [facility] FOR DELIVERY., EFM AND SERIAL BP Q 30 MIN
--- NOTE | 2019-11-07 20:55 | NUR ---
patient resting in bed with EFM/TOCO on. Informed Dr Muñoz called and she would not be transfered tonight. Voices understanding, and is ready to go back to sleep
[2019-11-08 20:00] VITALS: BP 118/69
[2019-11-09 07:12] VITALS: BP 128/83
[2019-11-10 07:52] VITALS: BP 137/87
[2019-11-10 10:23] LABS: BASOPHILS 0.1 % (0-2); EOSINOPHILS 0.8 % (0-7); HEMATOCRIT 29.1 % (36.0-48.0); HEMOGLOBIN 9.3 g/dL (12-16); IMMATURE GRANULOCYTES 0.3 % (0-5); LYMPHOCYTES 13.1 % (15-50); MCH 25.5 pg (26.0-34.0); MCV 79.9 fL (80.0-100.0); MEAN PLATELET VOLUME 9.6 fL (7.4-10.4); MONOCYTES 2.5 % (2-11); NEUTROPHILS 83.2 % (40-80); PLATELET COUNT 186 10x3/uL (130-400); RBC 3.64 10x6/uL (4.00-5.40); RDW 19.7 % (11.5-14.5)
[2019-11-10 10:32] LABS: CALC OSMOLALITY 270 mosm/kg (275-300); CALCIUM 7.9 mg/dL (8.5-10.1); CARBON DIOXIDE 22.8 mmol/L (21.0-32.0); CHLORIDE - SERUM 104 mmol/L (98-107); CREATININE - SERUM 0.6 mg/dL (0.6-1.3); GLUCOSE 99 mg/dL (74-106); POTASSIUM - SERUM 3.4 mmol/L (3.5-5.1); SODIUM 137 mmol/L (136-145); UREA NITROGEN 5 mg/dL (7-18); eGFR NON AFRICAN AMERICAN > 90 mL/min (90-120)
[2019-11-10 10:38] LABS: ALBUMIN 2.9 g/dL (3.4-5.0); ALKALINE PHOSPHATASE 82 U/L (30-120); ALT (SGPT) 12 U/L (10-68); BILIRUBIN - DIRECT 0.11 mg/dL (0.00-0.30); BILIRUBIN - INDIRECT 0.19 mg/dL (0.00-1.00); PROTEIN - SERUM 6.3 g/dL (6.4-8.2); URIC ACID 2.7 mg/dL (2.6-7.2)
--- NOTE | 2019-11-10 17:17 | MORECARE ---
CASE MANAGEMENT DISCHARGE SUMMARY PATIENT: JUDI BARAHONA UNIT: [id number] ADM DATE: 11/07/19 AGE: 38 : 84 SEX: F ROOM/BED: D.1278 AUTHOR: FAHEEM COLE PHYSICIAN: REFERRING PHYSICIAN: GUMARO BELTRÁN DO DATE OF SERVICE: 11/10/19 Discharge Plan Patient Name: JUDI BARAHONA Facility: [facility]:[place] : 1980 Planned Disposition: Anticipated Discharge Date: Discharge Date: Expected LOS: Initial Reviewer: [email or web address] Initial Review Date: 11/06/2019 Generated: 11/10/19 6:16 pm Patient Name: JUDI BARAHONA Page [phone] at 1717 All edits/amendments must be made on the electronic document DICTATION DATE: 11/10/191715 LOGGING TRUCK DRIVER: ALEKSANDRA 11/10/191715 RPT#: [id number] DC DATE: STATUS: ADM IN [facility] [address] [place] [address] END OF REPORT
[2019-11-11 06:09] LABS: RAPID PLASMA REAGIN Non Reactive (Non Reactive)
[2019-11-11 11:18] LABS: CALC OSMOLALITY 270 mosm/kg (275-300); CALCIUM 8.1 mg/dL (8.5-10.1); CARBON DIOXIDE 19.1 mmol/L (21.0-32.0); CHLORIDE - SERUM 105 mmol/L (98-107); CREATININE - SERUM 0.5 mg/dL (0.6-1.3); GLUCOSE 80 mg/dL (74-106); POTASSIUM - SERUM 3.2 mmol/L (3.5-5.1); SODIUM 137 mmol/L (136-145); UREA NITROGEN 6 mg/dL (7-18); eGFR NON AFRICAN AMERICAN > 90 mL/min (90-120)
[2019-11-11 11:22] LABS: URIC ACID 2.3 mg/dL (2.6-7.2)
[2019-11-11 11:41] LABS: MCH 27.2 pg (26.0-34.0); MCHC 32.7 g/dL (31.0-37.0); MEAN PLATELET VOLUME 9.1 fL (7.4-10.4); RBC 4.34 10x6/uL (4.00-5.40); RDW 18.9 % (11.5-14.5)
[2019-11-11 11:42] LABS: HEMATOCRIT 36.1 % (36.0-48.0); HEMOGLOBIN 11.8 g/dL (12-16); MCV 83.2 fL (80.0-100.0); WBC 13.4 10x3/uL (4.8-10.8)
--- NOTE | 2019-11-11 19:00 | NUR ---
DR RAHMAN CALLS. UPDATE GIVEN ON ORDERED LABS. NO NEW ORDERS.
[2019-11-11 19:07] LABS: HEMATOCRIT 32.7 % (36.0-48.0); HEMOGLOBIN 10.7 g/dL (12-16); MCH 26.5 pg (26.0-34.0); MCHC 32.7 g/dL (31.0-37.0); MEAN PLATELET VOLUME 9.3 fL (7.4-10.4); RBC 4.04 10x6/uL (4.00-5.40); RDW 18.3 % (11.5-14.5); WBC 11.4 10x3/uL (4.8-10.8)
[2019-11-11 19:08] LABS: MCV 80.9 fL (80.0-100.0)
[2019-11-11 19:15] VITALS: BP 162/100
[2019-11-12 03:36] LABS: HEMATOCRIT 29.8 % (36.0-48.0); HEMOGLOBIN 10.1 g/dL (12-16); MCH 27.2 pg (26.0-34.0); MCHC 33.9 g/dL (31.0-37.0); MCV 80.3 fL (80.0-100.0); MEAN PLATELET VOLUME 9.1 fL (7.4-10.4); RBC 3.71 10x6/uL (4.00-5.40); RDW 18.2 % (11.5-14.5); WBC 11.2 10x3/uL (4.8-10.8)
--- NOTE | 2019-11-12 07:30 | NUR ---
DR. RAHMAN TO PT'S ROOM TO SPEAK WITH PT REGARDING PLAN OF CARE. REVIEWS BP READINGS. VERBAL ORDER RECEIVED TO STOP MAGNESIUM NOW, DC JONAS CATH, SL IV, PROCARDIA XL PO ONE TABLET TO BE GIVEN AT 0830, AND PT MAY HAVE REGULAR DIET.
[2019-11-12 07:39] VITALS: Ht 167.6 cm; Wt 71.2 kg
--- NOTE | 2019-11-12 07:45 | NUR ---
TO ROOM. DIETARY HAS SERVED CLEAR LIQUID DIET, REGULAR DIET ORDERED. IV SL. JONAS CATH DC'D WITH 400 ML'S YELLOW URINE NOTED IN JOANS BAG. PERICARE DONE WITH WARM WET WASHCLOTHS, PERINEUM INTACT, WITHOUT LABIAL SWELLING, PERIPAD/PANTIES ON. BLUE SOCKS PLACED ON PT'S FEET FOR COMFORT. LARGE MUG OF FRESH ICE WATER IS ON BEDSIDE TABLE. PT DENIES ALL OTHER NEEDS AT THIS TIME. DIETARY SERVES REGULAR BREAKFAST TRAY BEFORE THIS RN EXITS ROOM. PT DID NOT TOUCH CLEAR LIQUID DIET TRAY. SRUP X2, CALL LIGHT AND PHONE WITHIN REACH. PT MAKING CELL PHONE CALLS TO UPDATE FAMILY ABOUT INFANT'S PROGRESS REPORT. PT LAUGHING AND SMILING THIS AM.
[2019-11-12 09:47] VITALS: BP 136/71
--- NOTE | 2019-11-12 09:50 | NUR ---
PT TALKING ON CELL PHONE. SEE EMAR FOR ALL MEDS ADM BY THIS RN. PT DENIES TERRELL, EPIGASTRIC PAIN, DENIES VISUAL DISTURBANCES. SRUP X2, CALL LIGHT AND PHONE WITHIN REACH.
--- NOTE | 2019-11-12 11:30 | NUR ---
PT AMBULATORY IN ROOM, UP TO BR, VOIDS MODERATE AMOUNT PER SELF WITHOUT DIFFICULTY, UNMEASURED AMOUNT. PT CONTINUES TO DENY HEADACHE, VISUAL DISTURBANCES, OR EPIGASTRIC PAIN. PT PROVIDED WITH EXTRA PERIPANTES AND PADS FOR D/C. ALSO PROVIDED WITH TOOTHPASTE/BRUSH PER HER REQUEST. DENIES ALL OTHER NEEDS.
--- NOTE | 2019-11-12 12:05 | NUR ---
PHONE CALL MADE TO DR. RAHMAN, PROGRESS REPORT GIVEN TO MD. BP READING AFTER TAKING PROCARDIA XL GIVEN TO MD, REPORT GIVEN TO MD THAT PT DENIES HEADACHES, VISUAL DISTURBANCES, OR EPIGASTRIC PAIN. TELEPHONE ORDER RECEIVED TO DISCHARGE PT HOME, TO FOLLOW UP WITH DR. RAHMAN IN ONE WEEK FOR BP CHECK, AND TO CALL IN PROCARDIA XL 30 MG ONE PO DAILY, # 30, CALLED TO [facility] [address] PER PT'S REQUEST. PLAN OF CARE DISCUSSED WITH PT, PT DENIES QUESTIONS, PT STATES SHE WANTS TO EAT LUNCH BEFORE SHE IS DISCHARGED HOME.
[2019-11-12] MEDS ORDERED: HYDROCODON-ACE1 EAC7 PO (13:47)
[2019-11-12] MEDS ORDERED: IBUPROFEN600 MG PO (13:47)
[2019-11-12] MEDS ORDERED: PROCARDIA XL60 MG PO (13:48)
--- NOTE | 2019-11-12 14:00 | NUR ---
DISCHARGE INSTRUCTIONS GIVEN WELL PRESCRIPTIONS PROVIDED BY DR RAHMAN. PT VERBALIZES UNDERSTANDING AND DENIES QUESTIONS. SIGNS CHART COPIES. PT REMINDED TO MANUFACTURING PRODUCTION MANAGER PRESCRIPTION FOR BP MED CALLED IN WELL. PT OFF UNIT AMBULATORY WITH FAMILY, REFUSES W/C OUT. INSTRUCTIONS AND PRESCRIPTIONS IN HAND.
== END 2019-11-12 13:30 | disposition home or self-care (01) | DRG 807 ==
LOC: D.LDO 13:42 → D.LD 19:31 → D.LDO 11-07 14:09 → D.LD 11-07 14:10
PROVIDERS: Obstetrics & Gynecology; ADMIT Student in an Organized Health Care Education/Training Program; ATTEND Student in an Organized Health Care Education/Training Program
PROC: 3E033VJ Introduction of Other Hormone into Peripheral Vein, Percutaneous Approach (ICD-10-PCS; 2019-11-10)
PROC: 10E0XZZ Delivery of Products of Conception, External Approach (ICD-10-PCS; principal; 2019-11-11)
PROC: 0HQ9XZZ Repair Perineum Skin, External Approach (ICD-10-PCS; 2019-11-11)
PROC: 10907ZC Drainage of Amniotic Fluid, Therapeutic from Products of Conception, Via Natural or Artificial Opening (ICD-10-PCS; 2019-11-11)
DX: O14.14 Severe pre-eclampsia complicating childbirth (principal); Z37.0 Single live birth; Z3A.34 34 weeks gestation of pregnancy; O70.0 First degree perineal laceration during delivery; K08.89 Other specified disorders of teeth and supporting structures; O26.893 Other specified pregnancy related conditions, third trimester

== ENCOUNTER 2020-05-11 11:20 | Emergency (ER) | payer OTHER ==
[~2020-05-11] VITALS: Ht 167.6 cm; Wt 65.0 kg
[~2020-05-11 11:20] MED LIST changes: +HYDROCODON-ACE1 EAC7 PO; +PROCARDIA XL60 MG PO
[2020-05-11 11:24] VITALS: Ht 167.6 cm; Wt 65.0 kg
[2020-05-11 12:05] LABS: BASOPHILS 0.6 % (0-2); EOSINOPHILS 1.5 % (0-7); HEMATOCRIT 34.8 % (36.0-48.0); HEMOGLOBIN 11.2 g/dL (12-16); IMMATURE GRANULOCYTES 0.2 % (0-5); LYMPHOCYTES 30.9 % (15-50); MCH 26.5 pg (26.0-34.0); MCHC 32.2 g/dL (31.0-37.0); MCV 82.3 fL (80.0-100.0); MEAN PLATELET VOLUME 9.4 fL (7.4-10.4); MONOCYTES 3.7 % (2-11); NEUTROPHILS 63.1 % (40-80); RBC 4.23 10x6/uL (4.00-5.40); RDW 17.9 % (11.5-14.5); WBC 5.4 10x3/uL (4.8-10.8)
[2020-05-11 12:07] LABS: ANION GAP 11.6 mmol/L (8-16); CARBON DIOXIDE 25.7 mmol/L (21.0-32.0); CREATININE - SERUM 0.9 mg/dL (0.6-1.3); PLATELET COUNT 285 10x3/uL (130-400); POTASSIUM - SERUM 4.3 mmol/L (3.5-5.1)
[2020-05-11 12:13] LABS: ALBUMIN 3.9 g/dL (3.4-5.0); BILIRUBIN - TOTAL 0.27 mg/dL (0.2-1.3); PROTEIN - SERUM 7.1 g/dL (6.4-8.2)
[2020-05-11 12:21] LABS: HCG URINE POSITIVE (NEGATIVE)
[2020-05-11 12:35] LABS: BILIRUBIN NEGATIVE (NEGATIVE); GLUCOSE NEGATIVE (NEGATIVE); KETONE NEGATIVE (NEGATIVE); NITRITE NEGATIVE (NEGATIVE); UROBILINOGEN NORMAL (NORMAL)
[2020-05-11 12:36] LABS: BACTERIA FEW /hpf (NEGATIVE); EPITHELIAL CELLS 0-5 /hpf (0-5); RED CELLS - URINE RARE /hpf (0-5); WHITE CELLS - URINE 0-5 /hpf (NEGATIVE)
[2020-05-11] MEDS ORDERED: PRENAVITE1 TAB PO (12:51)
[2020-05-11] MEDS ORDERED: MACROBID100 MG PO (12:52)
[2020-05-11 12:55] VITALS: BP 110/70
== END 2020-05-11 12:57 | disposition home or self-care (01) ==
LOC: D.ER 11:20
PROVIDERS: Family Medicine
DX: O16.1 Unspecified maternal hypertension, first trimester (principal); Z3A.01 Less than 8 weeks gestation of pregnancy; R11.2 Nausea with vomiting, unspecified; K21.9 Gastro-esophageal reflux disease without esophagitis

== ENCOUNTER 2020-05-22 09:56 | Emergency (ER) | payer OTHER ==
[~2020-05-22] VITALS: Ht 167.6 cm; Wt 64.5 kg
[~2020-05-22 09:56] MED LIST changes: +MACROBID100 MG PO
[2020-05-22 10:11] VITALS: Ht 167.6 cm; Wt 64.5 kg
[2020-05-22 10:41] LABS: ANION GAP 11.3 mmol/L (8-16); CALCIUM 9.2 mg/dL (8.5-10.1); CARBON DIOXIDE 25.4 mmol/L (21.0-32.0); POTASSIUM - SERUM 3.7 mmol/L (3.5-5.1)
[2020-05-22 10:46] LABS: BASOPHILS 0.1 % (0-2); EOSINOPHILS 0.1 % (0-7); HEMATOCRIT 38.5 % (36.0-48.0); HEMOGLOBIN 12.6 g/dL (12-16); IMMATURE GRANULOCYTES 0.1 % (0-5); LYMPHOCYTES 12.9 % (15-50); MCH 26.9 pg (26.0-34.0); MCHC 32.7 g/dL (31.0-37.0); MCV 82.3 fL (80.0-100.0); MEAN PLATELET VOLUME 9.4 fL (7.4-10.4); MONOCYTES 1.2 % (2-11); NEUTROPHILS 85.6 % (40-80); RBC 4.68 10x6/uL (4.00-5.40); RDW 17.2 % (11.5-14.5); WBC 6.9 10x3/uL (4.8-10.8)
[2020-05-22 10:48] LABS: ALBUMIN 4.3 g/dL (3.4-5.0); BILIRUBIN - TOTAL 0.41 mg/dL (0.2-1.3); PROTEIN - SERUM 8.3 g/dL (6.4-8.2)
[2020-05-22 10:52] LABS: PLATELET COUNT 352 10x3/uL (130-400)
[2020-05-22 10:59] LABS: BILIRUBIN NEGATIVE (NEGATIVE); KETONE NEGATIVE (NEGATIVE); NITRITE NEGATIVE (NEGATIVE)
[2020-05-22 11:02] LABS: BACTERIA MODERATE /hpf (NONE SEEN); EPITHELIAL CELLS 0-5 /hpf (0-5); RED CELLS - URINE RARE /hpf (0-5); WHITE CELLS - URINE 0-5 /hpf (0-5)
[2020-05-22] MEDS ORDERED: MACROBID100 MG PO (11:06)
[2020-05-22] MEDS ORDERED: KEFLEX500 MG PO (11:06)
[2020-05-22 12:50] VITALS: BP 122/76
== END 2020-05-22 12:50 | disposition home or self-care (01) ==
LOC: D.ER 09:56
PROVIDERS: Emergency Medicine
DX: O26.891 Other specified pregnancy related conditions, first trimester (principal); R11.2 Nausea with vomiting, unspecified; N39.0 Urinary tract infection, site not specified

== ENCOUNTER 2020-05-25 22:19 | Outpatient (CLI) | payer OTHER ==
[~2020-05-25] VITALS: Ht 167.6 cm; Wt 65.9 kg
[2020-05-25 22:24] VITALS: Ht 167.6 cm; Wt 65.9 kg
[2020-05-25 22:50] LABS: BASOPHILS 0.2 % (0-2); EOSINOPHILS 0 % (0-7); HEMOGLOBIN 12.1 g/dL (12-16); IMMATURE GRANULOCYTES 0.1 % (0-5); LYMPHOCYTES 7.7 % (15-50); MCH 27.2 pg (26.0-34.0); MCHC 33.6 g/dL (31.0-37.0); MCV 80.9 fL (80.0-100.0); MEAN PLATELET VOLUME 9.7 fL (7.4-10.4); MONOCYTES 2.4 % (2-11); NEUTROPHILS 89.6 % (40-80); PLATELET COUNT 338 10x3/uL (130-400); RBC 4.45 10x6/uL (4.00-5.40); RDW 16.8 % (11.5-14.5); WBC 10.2 10x3/uL (4.8-10.8)
[2020-05-25 23:00] LABS: CALC OSMOLALITY 277 mosm/kg (275-300); CALCIUM 9.4 mg/dL (8.5-10.1); CARBON DIOXIDE 18.7 mmol/L (21.0-32.0); CHLORIDE - SERUM 104 mmol/L (98-107); CREATININE - SERUM 0.8 mg/dL (0.6-1.3); GLUCOSE 122 mg/dL (74-106); POTASSIUM - SERUM 3.1 mmol/L (3.5-5.1); SODIUM 139 mmol/L (136-145); UREA NITROGEN 9 mg/dL (7-18); eGFR NON AFRICAN AMERICAN 85 mL/min (90-120)
[2020-05-25 23:07] LABS: ALBUMIN 4.1 g/dL (3.4-5.0); ALKALINE PHOSPHATASE 54 U/L (30-120); ALT (SGPT) 17 U/L (10-68); BILIRUBIN - TOTAL 0.41 mg/dL (0.2-1.3)
[2020-05-25 23:22] LABS: HCG SERUM POSITIVE (NEGATIVE)
[2020-05-26 00:13] LABS: BILIRUBIN NEGATIVE (NEGATIVE); KETONE LARGE mg/dL (NEGATIVE); NITRITE NEGATIVE (NEGATIVE); UROBILINOGEN NORMAL (NORMAL)
[2020-05-26 00:15] LABS: BACTERIA FEW /hpf (NONE SEEN); EPITHELIAL CELLS 0-5 /hpf (0-5); RED CELLS - URINE NONE SEEN /hpf (0-5); WHITE CELLS - URINE 0-5 /hpf (0-5)
[2020-05-26] MEDS ORDERED: REGLAN10 MG PO (00:44)
[2020-05-26 01:35] VITALS: BP 136/70
== END 2020-05-26 09:17 | disposition home or self-care (01) ==
LOC: OBSVTIME → D.ER 22:19 → D.LDO 22:19 → D.ER 05-26 01:18 → D.LD 05-26 01:18 → OBSVTIME 05-26 01:18 → D.ER 05-26 01:51 → D.LDO 05-26 09:17
PROVIDERS: ATTEND Family Medicine
DX: O26.899 Other specified pregnancy related conditions, unspecified trimester (principal); Z3A.00 Weeks of gestation of pregnancy not specified; R10.9 Unspecified abdominal pain; R11.2 Nausea with vomiting, unspecified; H53.8 Other visual disturbances

== ENCOUNTER 2020-05-28 15:06 | Observation (INO) | payer OTHER ==
[~2020-05-28] VITALS: Ht 167.6 cm; Wt 64.4 kg
[~2020-05-28 15:06] MED LIST changes: +REGLAN10 MG PO
[2020-05-28 16:14] LABS: BASOPHILS 0.2 % (0-2); HEMATOCRIT 36.4 % (36.0-48.0); HEMOGLOBIN 11.9 g/dL (12-16); IMMATURE GRANULOCYTES 0.2 % (0-5); LYMPHOCYTES 20.5 % (15-50); MCH 27.2 pg (26.0-34.0); MCHC 32.7 g/dL (31.0-37.0); MCV 83.1 fL (80.0-100.0); MEAN PLATELET VOLUME 9.4 fL (7.4-10.4); NEUTROPHILS 74.1 % (40-80); PLATELET COUNT 301 10x3/uL (130-400); RBC 4.38 10x6/uL (4.00-5.40); RDW 17.2 % (11.5-14.5); WBC 9.8 10x3/uL (4.8-10.8)
[2020-05-28 16:29] LABS: CALC OSMOLALITY 266 mosm/kg (275-300); CARBON DIOXIDE 22.4 mmol/L (21.0-32.0); CHLORIDE - SERUM 100 mmol/L (98-107); CREATININE - SERUM 0.8 mg/dL (0.6-1.3); GLUCOSE 76 mg/dL (74-106); POTASSIUM - SERUM 3.2 mmol/L (3.5-5.1); SODIUM 135 mmol/L (136-145); UREA NITROGEN 7 mg/dL (7-18); eGFR NON AFRICAN AMERICAN 85 mL/min (90-120)
[2020-05-28 16:55] LABS: HCG URINE POSITIVE (NEGATIVE)
[2020-05-28 16:57] LABS: BILIRUBIN NEGATIVE (NEGATIVE); KETONE MODERATE mg/dL (NEGATIVE); NITRITE NEGATIVE (NEGATIVE); UROBILINOGEN NORMAL (NORMAL)
[2020-05-28 16:58] LABS: BACTERIA MODERATE /hpf (NONE SEEN); RED CELLS - URINE 0-5 /hpf (0-5)
[2020-05-28 17:00] LABS: ALBUMIN 3.8 g/dL (3.4-5.0); ALKALINE PHOSPHATASE 54 U/L (30-120); ALT (SGPT) 18 U/L (10-68); HCG - QUANTITATIVE (MATERNAL) 73845 mIU/mL; LIPASE 92 U/L (73-393); PROTEIN - SERUM 7.1 g/dL (6.4-8.2)
[2020-05-28 17:00] LABS: UDS - AMPHET NEGATIVE QUAL (NEGATIVE); UDS - BARB NEGATIVE QUAL (NEGATIVE); UDS - BENZO NEGATIVE QUAL (NEGATIVE); UDS - COCAINE NEGATIVE QUAL (NEGATIVE); UDS - OPIATE NEGATIVE QUAL (NEGATIVE); UDS - PCP NEGATIVE QUAL (NEGATIVE); UDS - THC POSITIVE QUAL (NEGATIVE)
[2020-05-28 20:40] VITALS: BP 194/124
--- NOTE | 2020-05-28 20:55 | NUR ---
PT REC'D FROM ER WITH A DX OF HYPEREMESIS GRAVIDARUM. PT IS APPROX 6 WEEKS GESTATION . PT DENIES PAIN AT THIS TIME BANANA BAG INFUSING TO THE RT FOREARM. PLACED ON PUMP AT 125 ML/HR. REGLAN,PHENERGAN, AND PROTONIX GIVEN IN ER. REPORT OF ELEVATED PRESSURES IN THE ER. MD NOTIFIED PRIOR TO PATIENT ARRIVAL AND LABETOLOL 20MG IVP ORDERED X1 DOSE AND INSTRUCTED TO TAKE PRESSURES APPROX Q 20 MIN TO MONITOR. NO VOMITING NOTED AT THIS TIME. Radha DIEGO RN
--- NOTE | 2020-05-28 21:09 | NUR ---
PT GIVEN LABETOLOL 20 MG IVP. Radha DIEGO RN
[2020-05-28 21:40] VITALS: BP 183/108; BMI 22.9
--- NOTE | 2020-05-28 22:12 | NUR ---
CALLED UNIT AND ORDERED AN ADDITIONAL DOSE OF LABETOLOL 20 MG. LABETOLOL DOSE GIVEN AT THIS TIME. Radha DIEGO RN
--- NOTE | 2020-05-28 22:51 | NUR ---
CALLED UNIT AT THIS TIME.ORDER REC'D TO START PATIENT ON LABETOLOL 200MG PO Q8HRS AND HANG LR AT 125 CONTINUOUS AFTER BANANA BAG. Radha DIEGO RN
--- NOTE | 2020-05-29 02:47 | NUR ---
LATE ENTRY: PT DEPARTED DEPARTMENT 05/24/20 @ 2049. REPORT CALLED TO KATELYN AT 2039. MVI INFUSION RUNNING AT 125ML/HR CONTINUED TO FLOOR. TRANSPORTED VIA WHEELCHAIR. CELL PHONE, CLOTHING, AND BAG TRANSPORTED WITH PATIENT. NO DELAY ON ROOM ASSIGNMENT.
[2020-05-29 10:16] VITALS: Ht 167.6 cm; Wt 64.4 kg
--- NOTE | 2020-05-29 18:29 | NUR ---
LABETALOL 300 MG PO GIVEN WITH SIPS OF APPLE JUICE. PT STATES SHE WAS ABLE TO TOLERATE THE PREVIOUS DOSE OF LABETALOL PO THAT WAS GIVEN EALIER, GIVEN WITH APPLE JUICE.
[2020-05-30 07:35] VITALS: BP 150/86
--- NOTE | 2020-05-30 07:45 | NUR ---
ENTERED ROOM-PT AWAKE. PT STATES "MY BLOOD PRESSURE IS NOT GOING TO COME DOWN BECAUSE I AM UPSET- MY SON NEEDS MY HELP WITH VIRTUAL SCHOOL WORK" ASSESSMENT DONE.
[2020-05-30 08:05] VITALS: BP 120/59
--- NOTE | 2020-05-30 08:15 | NUR ---
RESTING AT THIS TIME.
[2020-05-30 08:33] VITALS: BP 121/60
[2020-05-30 09:03] VITALS: BP 151/84
--- NOTE | 2020-05-30 09:11 | NUR ---
pt states that iv is hurting at site. informed that will resite it. no swelling or redness noted.
--- NOTE | 2020-05-30 09:20 | NUR ---
IV SALINE LOCK REMOVED FROM RT ARM. IV RESITED LT WRIST USING 18G CATH WITHOUT DIFFICULTY- UP LR AT 125CC/HR.
[2020-05-30 09:33] VITALS: BP 120/70
--- NOTE | 2020-05-30 09:40 | NUR ---
DR DUPONT IN ROOM TALKING WITH PT. PT REQUESTING DISCHARGE. DR DUPONT DISCUSSES WITH PT THAT HE WANTS TO HAVE US AT OFFICE WITH KRISTI THIS WEEK AND TO SEE HIM AFTERWARD. DR DUPONT REQUESTS PT TAKE CLONIDINE 0.2 PO BID -START 12 HOURS AFTER LAST DOSE. ANEUDY DUPONT STATES WILL PRESCRIBE PHENERGAN SUPP FOR PT.
[2020-05-30 10:03] VITALS: BP 135/86
--- NOTE | 2020-05-30 10:14 | NUR ---
DR DUPONT CALLS UNIT AND STATES THAT HE IS REVIEWING BP MEDICATION FOR PT TO TAKE AT HOME. STATES WILL CALL BACK
--- NOTE | 2020-05-30 10:16 | NUR ---
DR DUPONT CALLS UNIT AND STATES THAT WANTS TO STOP CLONIDINE AND LABETALOL AND PT IS TO TAKE NIFEDIPINE 60MG QD AND TO UPDATE PT INSTRUCTIONS.
--- NOTE | 2020-05-30 10:35 | NUR ---
IV DISCONTINUED -CATH TIP INTACT- PRESSURE HELD AND BANDAIDE APPLIED. PT UP TO DRESS.
--- NOTE | 2020-05-30 10:44 | NUR ---
DISCHRGE INST VERBAL AND WRITTEN GIVEN. PT STATES UNDERSTANDING. STATES WILL PICH UP SCRIPT FOR PROCARDIA AND PHENERGAN -(ESCRIBED BY DR DUPONT) AND WILL OSCAR DIRECTED. PT REQUESTS TO AMBULATE OFF UNIT. DISCHARGED HOME -STABLE.
== END 2020-05-30 10:45 | disposition home or self-care (01) ==
LOC: D.ER 15:06 → D.LD 19:04 → OBSVTIME 20:55 → D.LD 05-30 10:45
PROVIDERS: Family Medicine; ADMIT Student in an Organized Health Care Education/Training Program; ATTEND Student in an Organized Health Care Education/Training Program
DX: O21.0 Mild hyperemesis gravidarum (principal); Z3A.01 Less than 8 weeks gestation of pregnancy; O10.911 Unspecified pre-existing hypertension complicating pregnancy, first trimester

== ENCOUNTER 2020-06-05 05:55 | Emergency (ER) | payer OTHER ==
[~2020-06-05] VITALS: Ht 167.6 cm; Wt 63.5 kg
[2020-06-05 06:02] VITALS: Ht 167.6 cm; Wt 63.5 kg
[2020-06-05] MEDS ORDERED: PROCARDIA10 MG PO (06:02)
[2020-06-05 06:41] LABS: BASOPHILS 0.1 % (0-2); EOSINOPHILS 0.1 % (0-7); HEMATOCRIT 39.2 % (36.0-48.0); HEMOGLOBIN 12.8 g/dL (12-16); IMMATURE GRANULOCYTES 0.2 % (0-5); LYMPHOCYTES 11.4 % (15-50); MCH 26.7 pg (26.0-34.0); MCHC 32.7 g/dL (31.0-37.0); MCV 81.7 fL (80.0-100.0); MEAN PLATELET VOLUME 9.4 fL (7.4-10.4); MONOCYTES 3.5 % (2-11); NEUTROPHILS 84.7 % (40-80); PLATELET COUNT 330 10x3/uL (130-400); RDW 16.8 % (11.5-14.5)
[2020-06-05 06:46] LABS: CALC OSMOLALITY 268 mosm/kg (275-300); CALCIUM 9.8 mg/dL (8.5-10.1); CARBON DIOXIDE 23.7 mmol/L (21.0-32.0); CHLORIDE - SERUM 99 mmol/L (98-107); CREATININE - SERUM 0.7 mg/dL (0.6-1.3); GLUCOSE 108 mg/dL (74-106); POTASSIUM - SERUM 3.3 mmol/L (3.5-5.1); SODIUM 133 mmol/L (136-145); UREA NITROGEN 17 mg/dL (7-18); eGFR NON AFRICAN AMERICAN > 90 mL/min (90-120)
[2020-06-05 06:52] LABS: ALBUMIN 4.1 g/dL (3.4-5.0); ALKALINE PHOSPHATASE 62 U/L (30-120); ALT (SGPT) 26 U/L (10-68); BILIRUBIN - TOTAL 0.47 mg/dL (0.2-1.3); PROTEIN - SERUM 8.4 g/dL (6.4-8.2)
[2020-06-05] MEDS ORDERED: COMPAZINE25 MG RC (08:41)
[2020-06-05 08:49] VITALS: BP 161/93
== END 2020-06-05 08:50 | disposition home or self-care (01) ==
LOC: D.ER 05:55
PROVIDERS: Emergency Medicine
DX: O21.0 Mild hyperemesis gravidarum (principal); Z3A.00 Weeks of gestation of pregnancy not specified; E87.6 Hypokalemia; I10 Essential (primary) hypertension

== ENCOUNTER 2020-06-07 13:42 | Observation (INO) | payer OTHER ==
[~2020-06-07] VITALS: Ht 167.6 cm; Wt 65.0 kg
[~2020-06-07 13:42] MED LIST changes: +COMPAZINE25 MG RC; +PROCARDIA10 MG PO
[2020-06-07 13:53] VITALS: Ht 167.6 cm; Wt 65.0 kg
[2020-06-07 14:30] LABS: BASOPHILS 0.2 % (0-2); EOSINOPHILS 0.4 % (0-7); HEMATOCRIT 34.5 % (36.0-48.0); HEMOGLOBIN 11.3 g/dL (12-16); IMMATURE GRANULOCYTES 0.2 % (0-5); LYMPHOCYTES 16.2 % (15-50); MCH 26.6 pg (26.0-34.0); MCHC 32.8 g/dL (31.0-37.0); MCV 81.2 fL (80.0-100.0); MEAN PLATELET VOLUME 8.9 fL (7.4-10.4); PLATELET COUNT 276 10x3/uL (130-400); RBC 4.25 10x6/uL (4.00-5.40)
[2020-06-07 14:49] LABS: BILIRUBIN NEGATIVE (NEGATIVE); KETONE MODERATE mg/dL (NEGATIVE); NITRITE NEGATIVE (NEGATIVE); UROBILINOGEN NORMAL mg/dL (< 2)
[2020-06-07 14:55] LABS: WHITE CELLS - URINE OCC HPF (0-4)
[2020-06-07 14:56] LABS: BACTERIA FEW /HPF (NONE SEEN)
[2020-06-07 15:12] LABS: CALC OSMOLALITY 264 mosm/kg (275-300); CALCIUM 9.1 mg/dL (8.5-10.1); CHLORIDE - SERUM 101 mmol/L (98-107); CREATININE - SERUM 0.7 mg/dL (0.6-1.3); GLUCOSE 84 mg/dL (74-106); POTASSIUM - SERUM 3.2 mmol/L (3.5-5.1); SODIUM 134 mmol/L (136-145); UREA NITROGEN 7 mg/dL (7-18); eGFR NON AFRICAN AMERICAN > 90 mL/min (90-120)
[2020-06-07 15:22] LABS: ALBUMIN 3.7 g/dL (3.4-5.0); ALKALINE PHOSPHATASE 50 U/L (30-120); ALT (SGPT) 20 U/L (10-68); PROTEIN - SERUM 7.3 g/dL (6.4-8.2)
[2020-06-07 20:09] LABS: BILIRUBIN NEGATIVE (NEGATIVE); KETONE NEGATIVE (NEGATIVE); NITRITE NEGATIVE (NEGATIVE); UROBILINOGEN NORMAL mg/dL (< 2)
--- NOTE | 2020-06-07 23:46 | NUR ---
RN TO PT BEDSIDE AT THIS TIME, PT SLEEPING, PT LEFT SLEEPING, NOT AWAKENED.
[2020-06-08 06:32] LABS: BASOPHILS 0.3 % (0-2); EOSINOPHILS 1.2 % (0-7); HEMOGLOBIN 10.8 g/dL (12-16); IMMATURE GRANULOCYTES 0.1 % (0-5); LYMPHOCYTES 20.6 % (15-50); MCH 26.5 pg (26.0-34.0); MCHC 32.7 g/dL (31.0-37.0); MCV 81.1 fL (80.0-100.0); MEAN PLATELET VOLUME 9.3 fL (7.4-10.4); MONOCYTES 4.2 % (2-11); NEUTROPHILS 73.6 % (40-80); PLATELET COUNT 276 10x3/uL (130-400); RBC 4.07 10x6/uL (4.00-5.40); RDW 16.1 % (11.5-14.5); WBC 6.9 10x3/uL (4.8-10.8)
[2020-06-08 06:46] LABS: ALBUMIN 3.3 g/dL (3.4-5.0); ALKALINE PHOSPHATASE 49 U/L (30-120); ALT (SGPT) 18 U/L (10-68); AMYLASE - SERUM 100 U/L (25-115); BILIRUBIN - TOTAL 0.47 mg/dL (0.2-1.3); CALC OSMOLALITY 267 mosm/kg (275-300); CALCIUM 8.7 mg/dL (8.5-10.1); CARBON DIOXIDE 23.2 mmol/L (21.0-32.0); CHLORIDE - SERUM 101 mmol/L (98-107); CREATININE - SERUM 0.6 mg/dL (0.6-1.3); GLUCOSE 103 mg/dL (74-106); LIPASE 197 U/L (73-393); POTASSIUM - SERUM 3.2 mmol/L (3.5-5.1); PROTEIN - SERUM 6.6 g/dL (6.4-8.2); SODIUM 135 mmol/L (136-145); UREA NITROGEN 8 mg/dL (7-18); eGFR NON AFRICAN AMERICAN > 90 mL/min (90-120)
--- NOTE | 2020-06-08 20:00 | NUR ---
PT [facility]. SHE IS APPROX 9 WEEKS WITH HYPEREMESIS. SHE IS NOT NAUSEATED AT THIS TIME. SHE HAS AN IV IN THE RIGHT FOREARM WITH D5 1/2 NS INFUSING AT 125 ML/HR. THE SITE LOOKS GOOD. HEART SOUNDS ARE REGULAR, LUNGS SOUND CLEAR AND BOWEL SOUNDS HEARD. SHE STATES SHE HAD BRISKET FOR DINNER BUT DIDN'T EAT ANY. SHE STATES SHE IS GOING TO SLEEP AFTER HER ASSESSMENT.
[2020-06-08 20:30] VITALS: BP 138/92
--- NOTE | 2020-06-08 21:00 | NUR ---
UA COLLECTED PER DR. QUIÑONEZ AND TAKEN TO THE LAB. PT WAS SLEEPING AND GOT UP TO GIVE US SPECIMEN. NO C/O OF NAUSEA.
[2020-06-08 22:30] VITALS: BP 132/96
--- NOTE | 2020-06-08 22:30 | NUR ---
VS 132/96 86 16 98% NO NAUSEA AT THIS TIME.
[2020-06-08 22:33] LABS: BILIRUBIN NEGATIVE (NEGATIVE); KETONE NEGATIVE (NEGATIVE); NITRITE NEGATIVE (NEGATIVE); UROBILINOGEN NORMAL mg/dL (< 2)
[2020-06-09 00:30] VITALS: BP 135/97
[2020-06-09 02:30] VITALS: BP 154/98
--- NOTE | 2020-06-09 02:30 | NUR ---
VS TAKEN. PT IS STILL SLEEPING. NO C/O OF NAUSEA. IV FLUIDS INFUSING AT 125 ML/HR
[2020-06-09 04:30] VITALS: BP 162/111
--- NOTE | 2020-06-09 05:00 | NUR ---
PT STATES SHE IS NAUSEATED. SHE REQUESTED ZOFRAN. THIS WAS GIVEN SL. SHE IS SLEEPING IN BED. THIS IS WHAT SHE HAS DONE ALL SHIFT.
--- NOTE | 2020-06-09 05:42 | NUR ---
PT STILL HAS SOME NAUSEA. SHE IS TRYING TO SLEEP.
[2020-06-09 05:48] VITALS: BP 134/83
--- NOTE | 2020-06-09 06:45 | NUR ---
REPORT RECEIVED FROM Shayan VALLADARES RN.
[2020-06-09 08:00] VITALS: BP 120/92
--- NOTE | 2020-06-09 08:00 | NUR ---
ROUNDS MADE. VS TAKEN AND STABLE. PT AWAKE, ALERT; NO C/O NAUSEA AT THIS TIME. IV INFUSING VIA IVP AT 125CC/HR. IV SITE CDI WITHOUT REDNESS OR SWELLING. 24 HOUR URINE COLLECTION IN BR ON ICE. PT STATES SHE DID NOT RECIEVE THE BREAKFAST SHE ORDERED. DIETARY NOTIFIED AND WILL BRING TRAY.
--- NOTE | 2020-06-09 09:15 | NUR ---
IV SALINE LOCKED AND COVERED. PT UP TO SHOWER.
--- NOTE | 2020-06-09 10:15 | NUR ---
PT BACK TO BED. IV INFUSING AT 125CC/HR. PT GIVEN SPRITE TO SIP. NO NEEDS OR CONCERNS VOICED AT THIS TIME.
--- NOTE | 2020-06-09 12:15 | NUR ---
PT REQUESTS ZOFRAN BEFORE EATING LUNCH.
--- NOTE | 2020-06-09 12:40 | NUR ---
IV PUMP BEEPING. TO PT'S ROOM TO TURN OFF PUMP AND D/C IV. PT. HOLDING PAPER TOWEL OVER SITE-STATES SHE 'KNOWS HOW TO TAKE OUT IV'S' AND PULLED HER IV OUT. CATHETER APPEARS TO BE INTACT. NO BLEEDING NOTED AT SITE. BANDAGE APPLIED. REVIEWED DISHCARGE INTRUCTIONS WITH PT REGARDING N/V AND . PT. TAKING 24 HOUR URINE HOME TO COMPLETE AND RETURN TO LAB TOMORROW. PT INSTRUCTED TO KEEP URINE CONTAINER COLD ON ICE OR IN REFRIGERATOR. STATES UNDERSTANDING. PRESCRIPTIONS CALLED IN TO PT PHARMACY BY DR. RAHMAN. PT DISCHARGED HOME AMBULATORY TO PRIVATE VEHICLE.
--- NOTE | 2020-06-09 17:20 | MORECARE ---
CASE MANAGEMENT DISCHARGE SUMMARY PATIENT: JUDI BARAHONA UNIT: [id number] ADM DATE: 06/07/20 AGE: 39 : 84 SEX: F ROOM/BED: D.1221 AUTHOR: FAHEEM COLE PHYSICIAN: REFERRING PHYSICIAN: HELEN RAHMAN MD DATE OF SERVICE: 06/09/20 Discharge Plan Patient Name: JUDI BARAHONA [facility] : 1980 Planned Disposition: Home Anticipated Discharge Date: 06/09/20 Discharge Date: 06/09/2020 Expected LOS: 2 Initial Reviewer: [email or web address] Initial Review Date: 06/07/2020 Generated: 06/09/20 6:19 pm Patient Name: JUDI BARAHONA Page [phone] at 1720 All edits/amendments must be made on the electronic document DICTATION DATE: 06/09/201719 FATS AND OILS LOADER: ALEKSANDRA 06/09/201719 RPT#: [id number] DC DATE:06/09/20 STATUS: DIS IN [facility] [address] [place] [address] END OF REPORT
== END 2020-06-09 12:45 | disposition home or self-care (01) ==
LOC: D.ER 13:42 → OBSVTIME 16:50 → D.LD 16:50 → D.WS 06-08 19:59
PROVIDERS: Family Medicine; ADMIT Obstetrics & Gynecology; ATTEND Obstetrics & Gynecology
DX: O21.0 Mild hyperemesis gravidarum (principal); Z3A.01 Less than 8 weeks gestation of pregnancy; O16.1 Unspecified maternal hypertension, first trimester

== ENCOUNTER 2020-06-10 16:39 | Outpatient (CLI) | payer OTHER ==
[2020-06-10] VITALS (9 sets, daily range): BP systolic 110–161; BP diastolic 55–105; Ht 167.6 cm; Wt 61.4 kg
[~2020-06-10] VITALS: Ht 167.6 cm; Wt 61.4 kg
[2020-06-10 17:30] LABS: BASOPHILS 0.1 % (0-2); EOSINOPHILS 0.6 % (0-7); HEMOGLOBIN 11.2 g/dL (12-16); IMMATURE GRANULOCYTES 0.2 % (0-5); MCH 27.3 pg (26.0-34.0); MCHC 32.9 g/dL (31.0-37.0); MCV 82.7 fL (80.0-100.0); MEAN PLATELET VOLUME 9.4 fL (7.4-10.4); MONOCYTES 4.8 % (2-11); NEUTROPHILS 79.3 % (40-80); PLATELET COUNT 293 10x3/uL (130-400); RBC 4.11 10x6/uL (4.00-5.40); RDW 16.1 % (11.5-14.5); WBC 8.9 10x3/uL (4.8-10.8)
[2020-06-10 18:14] LABS: ALBUMIN 3.6 g/dL (3.4-5.0); BILIRUBIN - TOTAL 0.31 mg/dL (0.2-1.3); CALCIUM 9.3 mg/dL (8.5-10.1); CARBON DIOXIDE 24.9 mmol/L (21.0-32.0); CREATININE - SERUM 0.9 mg/dL (0.6-1.3); MAGNESIUM - SERUM 1.9 mg/dL (1.8-2.4); PROTEIN - SERUM 7.4 g/dL (6.4-8.2)
[2020-06-10 18:16] LABS: BACTERIA MANY HPF (NONE SEEN); BILIRUBIN NEGATIVE (NEGATIVE); EPITHELIAL CELLS 0-5 /hpf (0-5); KETONE NEGATIVE (NEGATIVE); NITRITE NEGATIVE (NEGATIVE); UROBILINOGEN NORMAL mg/dL (< 2)
[2020-06-10 18:21] LABS: POTASSIUM - SERUM 2.9 mmol/L (3.5-5.1)
--- NOTE | 2020-06-10 20:25 | NUR ---
DR FLOWERS AT THE BEDSIDE FOR PATIENT ASSESSMENT. INCREASED BP NOTED AND VERBAL ORDER REC'D FOR LABETOLOL 20 MG. Radha DIEGO RN
--- NOTE | 2020-06-10 22:00 | NUR ---
PT ASLEEP AT THIS TIME. NO DISTRESS NOTED. Radha DIEGO RN
--- NOTE | 2020-06-10 23:00 | NUR ---
WATER GIVEN AT THIS TIME. PT RESTING COMFORTABLY. L JOHNATHON, RN
[2020-06-11] VITALS (12 sets, daily range): BP systolic 118–180; BP diastolic 62–94
--- NOTE | 2020-06-11 00:50 | NUR ---
PT REC'D IN BED ASLEEP AT THIS TIME. NO DISTRESS NOTED. Radha DIEGO RN
--- NOTE | 2020-06-11 01:50 | NUR ---
PT UP TO BATHROOM AT THIS TIME. NO DISTRESS NOTED. Radha DIEGO RN
[2020-06-11 06:23] LABS: BASOPHILS 0.1 % (0-2); EOSINOPHILS 0.9 % (0-7); HEMOGLOBIN 9.8 g/dL (12-16); IMMATURE GRANULOCYTES 0.1 % (0-5); LYMPHOCYTES 16.4 % (15-50); MCH 26.6 pg (26.0-34.0); MCHC 32.7 g/dL (31.0-37.0); MCV 81.5 fL (80.0-100.0); MEAN PLATELET VOLUME 9.3 fL (7.4-10.4); NEUTROPHILS 78.5 % (40-80); PLATELET COUNT 245 10x3/uL (130-400); RBC 3.68 10x6/uL (4.00-5.40); RDW 16.2 % (11.5-14.5); WBC 7.9 10x3/uL (4.8-10.8)
[2020-06-11 06:54] LABS: ALBUMIN 3.2 g/dL (3.4-5.0); ALKALINE PHOSPHATASE 46 U/L (30-120); ALT (SGPT) 19 U/L (10-68); BILIRUBIN - TOTAL 0.12 mg/dL (0.2-1.3); CALCIUM 8.7 mg/dL (8.5-10.1); CARBON DIOXIDE 22.4 mmol/L (21.0-32.0); CHLORIDE - SERUM 103 mmol/L (98-107); GLUCOSE 93 mg/dL (74-106); PROTEIN - SERUM 6.6 g/dL (6.4-8.2); SODIUM 134 mmol/L (136-145)
[2020-06-11 06:58] LABS: CALC OSMOLALITY 265 mosm/kg (275-300); CREATININE - SERUM 0.6 mg/dL (0.6-1.3); POTASSIUM - SERUM 3.2 mmol/L (3.5-5.1); UREA NITROGEN 8 mg/dL (7-18); eGFR NON AFRICAN AMERICAN > 90 mL/min (90-120)
--- NOTE | 2020-06-11 07:45 | NUR ---
PT RESTING WITH EYES CLOSED AND RESP EVEN, NO SIGN OF DISTRESS NOTED. LEFT UNDISTURBED AT THIS TIME.
--- NOTE | 2020-06-11 09:30 | NUR ---
DR SOLANO AT BEDSIDE, PT AWAKE AND ALERT, LAUGHING AND TALKING ON PHONE. PT STATES THAT SHE WAS ABLE TO EAT JELLO AND APPLE JUICE FROM BREAKFAST TRAY AND HAS HAD NO NAUSEA OR VOMITING. ORDERS RECEIVED TO ADVANCE DIET TO BLAND REGULAR LUNCH.
--- NOTE | 2020-06-11 11:34 | NUR ---
DENIES NAUSEA AT THIS TIME, REGLAN GIVEN IV ORDERED AND SCANNED TO EMAR. DENIES PAIN OR DISCOMFORT, NO NEEDS VOICED.
--- NOTE | 2020-06-11 14:00 | NUR ---
PT HAS NOT HAD ANY VOMITING SINCE SHE FINISHED HER LUNCH AROUND 1230, SHE ALSO DENIES NAUSEA AT THIS TIME. ASKING ABOUT DISCHARGE. DR SOLANO NOTIFIED AND REPORT GIVEN OF NO NAUSEA OR VOMITING. PT PHARMACY VERIFIED AND STATES SHE WILL SEND ESCRIPT TO PHARMACY. PT UP TO BATHROOM AND DRESS.
--- NOTE | 2020-06-11 14:20 | NUR ---
DISCHARGE INSRUCTIONS GONE OVER WITH PT, SHE STATES UNDERSTANDING TO DIGITAL TRAFFIC COORDINATOR SCRIPTS AND WHEN SHOULD BE TAKEN. SALINE LOCK DISCONTINUED WITH CATH INTACT. DENIES QUESTIONS OR CONCERNS, WHEELCHAIR OFFERED BUT PT DENIES, AMB OFF UNIT WITH FRIEND. PT IS LAUGHING LOUDLY WITHOUT SIGNS OF DISTRESS.
== END 2020-06-11 14:55 | disposition home or self-care (01) ==
LOC: D.ER 16:39 → D.LDO 16:39 → EDSTATUS 20:15 → D.LD 20:17 → D.LDO 06-11 14:55
PROVIDERS: Family Medicine; ATTEND Obstetrics & Gynecology
DX: O26.899 Other specified pregnancy related conditions, unspecified trimester (principal); R10.9 Unspecified abdominal pain; R11.2 Nausea with vomiting, unspecified; I10 Essential (primary) hypertension

== ENCOUNTER 2020-06-19 18:32 | Emergency (ER) | payer OTHER ==
[~2020-06-19] VITALS: Ht 167.6 cm; Wt 65.9 kg
[2020-06-19 18:42] VITALS: BP 148/117; Ht 167.6 cm; Wt 65.9 kg
[2020-06-19] MEDS ORDERED: PHENERGAN50 MG RC (18:48)
[2020-06-19] MEDS ORDERED: REGLAN10 MG PO (18:49)
== END 2020-06-19 20:51 | disposition left against medical advice (07) ==
LOC: D.ER 18:32
DX: E86.0 Dehydration (principal)

== ENCOUNTER 2020-06-20 11:53 | Emergency (ER) | payer OTHER ==
[~2020-06-20] VITALS: Ht 167.6 cm; Wt 65.9 kg
[~2020-06-20 11:53] MED LIST changes: +PHENERGAN50 MG RC
[2020-06-20 12:11] VITALS: Ht 167.6 cm; Wt 65.9 kg
[2020-06-20 12:46] LABS: BASOPHILS 0 % (0-2); EOSINOPHILS 0.5 % (0-7); HEMATOCRIT 34.6 % (36.0-48.0); HEMOGLOBIN 11.3 g/dL (12-16); IMMATURE GRANULOCYTES 0.3 % (0-5); LYMPHOCYTES 12.9 % (15-50); MCHC 32.7 g/dL (31.0-37.0); MCV 82.8 fL (80.0-100.0); MEAN PLATELET VOLUME 9.6 fL (7.4-10.4); MONOCYTES 2.3 % (2-11); RBC 4.18 10x6/uL (4.00-5.40); RDW 16.5 % (11.5-14.5); WBC 7.8 10x3/uL (4.8-10.8)
[2020-06-20 12:53] LABS: CALC OSMOLALITY 263 mosm/kg (275-300); CHLORIDE - SERUM 104 mmol/L (98-107); CREATININE - SERUM 0.6 mg/dL (0.6-1.3); GLUCOSE 92 mg/dL (74-106); POTASSIUM - SERUM 3.8 mmol/L (3.5-5.1); SODIUM 133 mmol/L (136-145); UREA NITROGEN 6 mg/dL (7-18); eGFR NON AFRICAN AMERICAN > 90 mL/min (90-120)
[2020-06-20 12:59] LABS: ALBUMIN 3.4 g/dL (3.4-5.0); ALKALINE PHOSPHATASE 50 U/L (30-120); ALT (SGPT) 23 U/L (10-68); BILIRUBIN - TOTAL 0.14 mg/dL (0.2-1.3); PROTEIN - SERUM 7.2 g/dL (6.4-8.2)
[2020-06-20 13:05] LABS: PLATELET COUNT 317 10x3/uL (130-400)
[2020-06-20 18:07] LABS: BILIRUBIN NEGATIVE (NEGATIVE); KETONE NEGATIVE (NEGATIVE); NITRITE NEGATIVE (NEGATIVE); UROBILINOGEN NORMAL mg/dL (< 2)
[2020-06-20 18:08] LABS: BACTERIA FEW HPF (NONE SEEN); WHITE CELLS - URINE 0-5 HPF (0-4)
[2020-06-20 19:48] VITALS: BP 149/102
== END 2020-06-20 19:49 | disposition home or self-care (01) ==
LOC: D.ER 11:53
PROVIDERS: Emergency Medicine
DX: O21.0 Mild hyperemesis gravidarum (principal); Z3A.10 10 weeks gestation of pregnancy; O23.41 Unspecified infection of urinary tract in pregnancy, first trimester; O16.1 Unspecified maternal hypertension, first trimester

== ENCOUNTER 2020-07-03 12:19 | Emergency (ER) | payer OTHER ==
[~2020-07-03] VITALS: Ht 167.6 cm; Wt 62.7 kg
[2020-07-03 12:50] VITALS: BP 114/73; Ht 167.6 cm; Wt 62.7 kg
[2020-07-03 13:47] LABS: ANION GAP 13.8 mmol/L (8-16); CALCIUM 9.5 mg/dL (8.5-10.1); CARBON DIOXIDE 24.8 mmol/L (21.0-32.0); CREATININE - SERUM 0.9 mg/dL (0.6-1.3); POTASSIUM - SERUM 3.6 mmol/L (3.5-5.1)
[2020-07-03 13:49] LABS: BASOPHILS 0.1 % (0-2); EOSINOPHILS 0.3 % (0-7); HEMATOCRIT 37.8 % (36.0-48.0); HEMOGLOBIN 12.6 g/dL (12-16); IMMATURE GRANULOCYTES 0.1 % (0-5); LYMPHOCYTES 13.7 % (15-50); MCH 27.6 pg (26.0-34.0); MCHC 33.3 g/dL (31.0-37.0); MCV 82.7 fL (80.0-100.0); MEAN PLATELET VOLUME 9.6 fL (7.4-10.4); MONOCYTES 3.8 % (2-11); PLATELET COUNT 300 10x3/uL (130-400); RBC 4.57 10x6/uL (4.00-5.40); RDW 16.7 % (11.5-14.5); WBC 10.4 10x3/uL (4.8-10.8)
[2020-07-03 13:52] LABS: ALBUMIN 3.7 g/dL (3.4-5.0); BILIRUBIN - TOTAL 0.31 mg/dL (0.2-1.3); PROTEIN - SERUM 8.3 g/dL (6.4-8.2)
== END 2020-07-03 16:44 | disposition home or self-care (01) ==
LOC: D.ER 12:19
PROVIDERS: Family Medicine
DX: O21.0 Mild hyperemesis gravidarum (principal)

== ENCOUNTER 2020-12-15 16:40 | Outpatient (CLI) | payer OTHER ==
[2020-12-15 18:38] LABS: BILIRUBIN NEGATIVE (NEGATIVE); KETONE NEGATIVE (NEGATIVE); NITRITE NEGATIVE (NEGATIVE); UROBILINOGEN NORMAL mg/dL (< 2)
[2020-12-15 18:44] LABS: BACTERIA MODERATE HPF (NONE SEEN)
[2020-12-16 10:10] LABS: BASOPHILS 0 % (0-2); EOSINOPHILS 0 % (0-7); HEMATOCRIT 29.4 % (36.0-48.0); HEMOGLOBIN 9.5 g/dL (12-16); IMMATURE GRANULOCYTES 0.4 % (0-5); LYMPHOCYTE ABS# 0.86 10x3/uL (1.18-3.74); LYMPHOCYTES 7.2 % (15-50); MCH 26.4 pg (26.0-34.0); MCHC 32.3 g/dL (31.0-37.0); MCV 81.7 fL (80.0-100.0); MEAN PLATELET VOLUME 9.5 fL (7.4-10.4); MONOCYTES 1.3 % (2-11); NEUTROPHILS 91.1 % (40-80); PLATELET COUNT 246 10x3/uL (130-400); RDW 14.3 % (11.5-14.5)
[2020-12-16 10:17] LABS: CALC OSMOLALITY 260 mosm/kg (275-300); CALCIUM 8.9 mg/dL (8.5-10.1); CARBON DIOXIDE 21.2 mmol/L (21.0-32.0); CHLORIDE - SERUM 100 mmol/L (98-107); CREATININE - SERUM 0.7 mg/dL (0.6-1.3); GLUCOSE 97 mg/dL (74-106); POTASSIUM - SERUM 3.5 mmol/L (3.5-5.1); SODIUM 131 mmol/L (136-145); UREA NITROGEN 6 mg/dL (7-18); eGFR NON AFRICAN AMERICAN > 90 mL/min (90-120)
[2020-12-16 10:23] LABS: ALBUMIN 3.2 g/dL (3.4-5.0); ALKALINE PHOSPHATASE 109 U/L (30-120); ALT (SGPT) 10 U/L (10-68); BILIRUBIN - DIRECT 0.15 mg/dL (0.00-0.30); BILIRUBIN - TOTAL 0.45 mg/dL (0.2-1.3); PROTEIN - SERUM 7.1 g/dL (6.4-8.2); URIC ACID 3.1 mg/dL (2.6-7.2)
[2020-12-16 13:25] VITALS: BMI 22.3
== END 2020-12-16 11:00 | disposition home or self-care (01) ==
LOC: D.LDO 16:40 → D.LD 23:20 → D.LDO 12-16 11:00
PROVIDERS: ATTEND Obstetrics & Gynecology
DX: O47.9 False labor, unspecified (principal)

== ENCOUNTER 2020-12-27 20:13 | Inpatient (IN) | payer OTHER ==
[~2020-12-27] VITALS: Ht 167.6 cm; Wt 66.2 kg
[2020-12-27 21:58] VITALS: BP 143/92; Ht 167.6 cm; Wt 66.2 kg
[2020-12-27 22:32] LABS: BASOPHILS 0.1 % (0-2); EOSINOPHILS 0.6 % (0-7); HEMATOCRIT 26.8 % (36.0-48.0); HEMOGLOBIN 8.5 g/dL (12-16); IMMATURE GRANULOCYTES 0.4 % (0-5); LYMPHOCYTE ABS# 1.09 10x3/uL (1.18-3.74); LYMPHOCYTES 12.1 % (15-50); MCH 25.8 pg (26.0-34.0); MCHC 31.7 g/dL (31.0-37.0); MCV 81.5 fL (80.0-100.0); MEAN PLATELET VOLUME 9.5 fL (7.4-10.4); NEUTROPHIL ABS# 7.37 10x3/uL (1.56-6.13); NEUTROPHILS 81.8 % (40-80); PLATELET COUNT 246 10x3/uL (130-400); RBC 3.29 10x6/uL (4.00-5.40); RDW 14.8 % (11.5-14.5)
[2020-12-27 22:40] LABS: ALKALINE PHOSPHATASE 131 U/L (30-120); ALT (SGPT) 8 U/L (10-68); BILIRUBIN - TOTAL 0.41 mg/dL (0.2-1.3); CALC OSMOLALITY 267 mosm/kg (275-300); CALCIUM 8.7 mg/dL (8.5-10.1); CARBON DIOXIDE 19.8 mmol/L (21.0-32.0); CHLORIDE - SERUM 101 mmol/L (98-107); CREATININE - SERUM 0.7 mg/dL (0.6-1.3); GLUCOSE 74 mg/dL (74-106); POTASSIUM - SERUM 3.8 mmol/L (3.5-5.1); PROTEIN - SERUM 6.6 g/dL (6.4-8.2); SODIUM 135 mmol/L (136-145); UREA NITROGEN 10 mg/dL (7-18); eGFR NON AFRICAN AMERICAN > 90 mL/min (90-120)
[2020-12-27 23:00] LABS: UDS - AMPHET NEGATIVE QUAL (NEGATIVE); UDS - BARB NEGATIVE QUAL (NEGATIVE); UDS - BENZO NEGATIVE QUAL (NEGATIVE); UDS - COCAINE NEGATIVE QUAL (NEGATIVE); UDS - OPIATE NEGATIVE QUAL (NEGATIVE); UDS - PCP NEGATIVE QUAL (NEGATIVE); UDS - THC POSITIVE QUAL (NEGATIVE)
[2020-12-28 05:07] VITALS: BP 118/84
--- NOTE | 2020-12-28 05:07 | NUR ---
RN TO PT BEDSIDE FOR VITALS, VSS. PT DENIES ANY PAIN/DISCOMFORT AT THIS TIME. PT IN BED BONDING WITH . FUNDUS IS FIRM, MIDLINE, 2 BELOW, SCANT RUBRA LOCHIA, NO CLOTS. PT DENIES ANY CURRENT NEEDS, PT KNOWS TO CALL OUT IF SHE HAS ANY NEEDS. BED IN LOWEST POSITION, SIDE RAILS UPX2, CALL LIGHT IN REACH.
--- NOTE | 2020-12-28 07:32 | NUR ---
PT SITTING UP IN BED. PT AWAKE. AAO X 3. VS NOTED. PT DENIES H/A, VIS PROBLEMS, EPIG OR RUQ PAIN. HRRR WITHOUT AUDIBLE MURMUR. BBS CLEAR. BS X 4. ABDOMEN SOFT/NON-DISTENDED. FUNDUS FIRM AT U/1. RUBRA LOCHIA SMALL AMT. NO CLOTS EXPRESSED. PERINEUM WITHOUT EDEMA NOTED. NEG HOMANS' SIGN. PPP. NO EDEMA NOTED TO BLE. SL SITE CLEAR. PT DENIES PAIN. SR UP X 2. CALL LIGHT IN REACH. PT STATES DESIRE FOR BTL. STATES HAS SIGNED PAPERS IN [facility]. WILL CHECK WITH .
[2020-12-28 07:34] VITALS: BP 148/90
--- NOTE | 2020-12-28 07:50 | NUR ---
DR RAHMAN VISITS WITH PT. ORDER RECEIVED TO ADD PT TO OR SCHEDULE FOR BTL TOMORROW. ARNOL LI NOTIFIED.
[2020-12-28 08:53] LABS: BASOPHILS 0.1 % (0-2); EOSINOPHILS 0.4 % (0-7); HEMATOCRIT 29.2 % (36.0-48.0); HEMOGLOBIN 9.3 g/dL (12-16); IMMATURE GRANULOCYTES 0.7 % (0-5); LYMPHOCYTE ABS# 0.97 10x3/uL (1.18-3.74); LYMPHOCYTES 7.1 % (15-50); MCH 26.4 pg (26.0-34.0); MCHC 31.8 g/dL (31.0-37.0); MEAN PLATELET VOLUME 9.7 fL (7.4-10.4); MONOCYTES 3.8 % (2-11); NEUTROPHIL ABS# 12.07 10x3/uL (1.56-6.13); NEUTROPHILS 87.9 % (40-80); PLATELET COUNT 267 10x3/uL (130-400); RBC 3.52 10x6/uL (4.00-5.40)
[2020-12-28 08:56] LABS: WBC 13.7 10x3/uL (4.8-10.8)
--- NOTE | 2020-12-28 09:10 | NUR ---
DR SOLANO ON UNIT. NOTIFIED OF PT BLOOD PRESSURE THIS AM. ALSO NOTIFIED DENIES SYMPTOMS OF PREECLAMPSIA. NO NEW ORDERS.
[2020-12-28 09:25] LABS: PROTEIN - URINE 47.5 mg/dL (0.0-11.9)
[2020-12-28 09:26] LABS: CREATININE - URINE 218.5 mg/dL (30-125); PRO/CRE RATIO URINE 0.2 mg/g
--- NOTE | 2020-12-28 09:48 | NUR ---
PT TRANSFERED VIA AMBULATORY TO ROOM 1273. PT TO BED. ORIENTED TO ROOM, BED, AND CALL LIGHT. SR UP X 2. CALL LIGHT IN REACH.
--- NOTE | 2020-12-28 11:30 | NUR ---
PT LYING TO RIGHT SIDE IN BED. HOLDS INFANT WITH MUCH WARMTH SHOWN. DENIES C/O OR NEEDS.
[2020-12-28 12:31] VITALS: BP 132/87
--- NOTE | 2020-12-28 12:31 | NUR ---
PT LYING TO LEFT SIDE IN BED. AWAKE. VSS. PT REQUESTS AND RECEIVES ICE. DENIES HEAVY BLEEDING OR PASSING CLOTS. PT REQUESTS AND RECEIVES ICE CHIPS.
--- NOTE | 2020-12-28 12:40 | NUR ---
DR SOLANO ON UNIT. NOTIFIED OF PT LAST BP. NO NEW ORDERS.
--- NOTE | 2020-12-28 13:53 | NUR ---
PT SITTING UP IN BED. FEEDING INFANT. DENIES PAIN OR NEEDS.
--- NOTE | 2020-12-28 15:45 | NUR ---
PT SITTING UP IN BED. TALKING ON PHONE. DENIES NEEDS OR C/O.
--- NOTE | 2020-12-28 17:30 | NUR ---
PT SITTING UP IN BED. CONSUMING DINNER AND TALKING ON PHONE. STATES "I DON'T WANT YOU TO CHECK MY BLOOD PRESSURE RIGHT NOW". STATES "MY 19 YEAR OLD DAUGHTER HAS UPSET ME". PT ENCOURAGED TO CALM AND THIS NURSE WILL RETURN TO ROOM IN 30 MINUTES TO CHECK BP.
[2020-12-28 18:00] VITALS: BP 159/92
[2020-12-28 18:01] VITALS: BP 157/93
--- NOTE | 2020-12-28 18:05 | NUR ---
DR SOLANO NOTIFIED OF PT BLOOD PRESSURES. PT DENIES H/A, VIS PROBLEMS, EPIG OR RUQ PAIN. ORDERS RECEIVED.
--- NOTE | 2020-12-28 18:10 | NUR ---
PT GIVEN LABETALOL 100 MG PO ORDERED. PT INSTRUCTED ON MED. VERBALIZES UNDERSTANDING. STATES "I WAS TAKING PROCARDIA DURING THE ". STATES "SO I'M USED TO TAKING BLOOD PRESSURE MEDICINE".
--- NOTE | 2020-12-28 19:00 | NUR ---
BEDSIDE SHIFT REPORT RECEIVED FROM Jolly BRYAN RN. PT SITTING UP IN BED FEEDING INFANT A BOTTLE AT THIS TIME. REQUESTS A CUP OF ICE. WILL RETURN WITH SAME.
[2020-12-28 19:39] VITALS: BP 149/84
--- NOTE | 2020-12-28 19:39 | NUR ---
SHIFT ASSESSMENT COMPLETED AT THIS TIME. SEE FLOWSHEET. INFANT RESTING QUIETLY IN OPEN CRIB AT BEDSIDE. CUP OF ICE PROVIDED PER REQUEST. PT DENIES PAIN OR NEEDS AT THIS TIME. BED LOW, WHEELS LOCKED, CALL LIGHT AND PHONE WITHIN REACH. SIDE RAILS UP X2. WILL CONTINUE TO MONITOR.
--- NOTE | 2020-12-28 20:48 | NUR ---
ROOM CHECK. PT SITTING UP IN BED TALKING ON HER CELL PHONE. RESTING IN OPEN CRIB AT BEDSIDE. PT DECLINES AMBIEN AND M.O.M. NO FURTHER NEEDS VOICED AT THIS TIME.
--- NOTE | 2020-12-28 22:50 | NUR ---
ROOM CHECK. PT RESTING WITH EYES CLOSED, RESP EVEN AND UNLABORED. PT LEFT UNDISTURBED AT THIS TIME.
--- NOTE | 2020-12-29 04:30 | NUR ---
labetalol 100 mg x1 tab given per orders with small sip of water. see emar for administration. pt denies pain or further needs. vss. will continue to monitor.
[2020-12-29 04:42] VITALS: BP 139/98
[2020-12-29 05:59] LABS: BASOPHILS 0.1 % (0-2); EOSINOPHILS 0.6 % (0-7); HEMATOCRIT 24.8 % (36.0-48.0); IMMATURE GRANULOCYTES 0.3 % (0-5); LYMPHOCYTE ABS# 1.25 10x3/uL (1.18-3.74); MCH 26.2 pg (26.0-34.0); MCHC 32.3 g/dL (31.0-37.0); MCV 81.3 fL (80.0-100.0); MEAN PLATELET VOLUME 9.5 fL (7.4-10.4); MONOCYTES 5.3 % (2-11); NEUTROPHIL ABS# 9.37 10x3/uL (1.56-6.13); NEUTROPHILS 82.7 % (40-80); PLATELET COUNT 252 10x3/uL (130-400); RBC 3.05 10x6/uL (4.00-5.40); RDW 15.1 % (11.5-14.5); WBC 11.3 10x3/uL (4.8-10.8)
[2020-12-29 06:11] LABS: RAPID PLASMA REAGIN Non Reactive (Non Reactive)
--- NOTE | 2020-12-29 07:00 | NUR ---
PT INFORMED OF DR RAHMAN DESIRE TO EITHER WAIT ON BTL FOR TODAY OR GIVE PT BLOOD PRIOR TO BTL TODAY; PT TO DECIDE. PT STATES DESIRE TO WAIT ON BTL. STATES "I HAVE SO MANY THINGS I HAVE TO GET DONE". STATES "I WASN'T PREPARED, I DON'T HAVE A CARSEAT OR ANYTHING". DR RAHMAN NOTIFIED.
--- NOTE | 2020-12-29 07:10 | NUR ---
PT REQUESTS BREAKFAST TRAY SPECIFICS. DIETARY MESSAGE SENT.
--- NOTE | 2020-12-29 07:30 | NUR ---
DR RAHMAN VISITS WITH PT.
--- NOTE | 2020-12-29 07:50 | NUR ---
DR SOLANO VISITS WITH PT.
[2020-12-29 08:00] VITALS: BP 136/89
--- NOTE | 2020-12-29 08:00 | NUR ---
VSS. HRRR WITHOUT AUDIBLE MURMUR. BBS CLEAR. BS X 4. ABDOMEN SOFT/NON-DISTENDED. FUNDUS FIRM AT U/3. RUBRA LOCHIA SMALL AMT. PT DENIES HEAVY BLEEDING OR PASSING CLOTS. PERINEUM WITHOUT EDEMA. NEG HOMANS' SIGN. PPP. NO EDEMA NOTED TO BLE. SL SITE CLEAR. PT STATES ABDOMINAL CRAMPING OF "3" ON 0-10 PAIN SCALE. REGULAR DIET SERVED. SR UP X 2. CALL LIGHT IN REACH. PT REQUESTS AND RECEIVES ICE WATER AND CUP OF ICE.
--- NOTE | 2020-12-29 09:30 | NUR ---
PT SITTING UP IN BED. TALKING ON PHONE. DENIES PAIN OR NEEDS.
[2020-12-29] MEDS ORDERED: NORMODYNE / TR100 MG PO (09:39)
[2020-12-29] MEDS ORDERED: FERROUS SULFAT325 MG PO (09:39)
--- NOTE | 2020-12-29 10:31 | NUR ---
PT CALLS ON LIGHT. STATES "THEY ARE NOT GOING TO RELEASE HER TODAY". STATES "I NEED TO GO HOME AND TEND TO MY OTHER KIDS". STATES "MY SEVEN YEAR OLD IS THREATENING TO KILL PEOPLE AND NEEDS HIS MEDICINE". WILL NOTIFY DR SOLANO OF PT REQUEST TO DISCHARGE.
--- NOTE | 2020-12-29 10:36 | NUR ---
DR SOLANO NOTIFIED OF PT REQUEST TO DISCHARGE HOME TODAY. STATES OK TO DC HOME IF OK WITH DR RAHMAN.
--- NOTE | 2020-12-29 10:37 | NUR ---
DR RAHMAN NOTIFIED OF PT REQUEST TO DISCHARGE HOME TODAY. STATES OK WITH PT DISCHARGING HOME TODAY.
--- NOTE | 2020-12-29 11:10 | NUR ---
PT IN SHOWER. DENIES NEEDS OR C/O.
--- NOTE | 2020-12-29 11:17 | NUR ---
DR VERNON IN NURSERY. NATALI CONTEH LPN, DR VERNON AND [employer] EMPLOYEES X 2 NOTIFIED OF PT REQUEST TO DC HOME DUE TO [age] YEAR OLD THREATENING TO KILL PEOPLE. [employer] STAFF STATES VERY FAMILIER WITH THIS FAMILY. STATES WILL GO VISIT WITH PT.
--- NOTE | 2020-12-29 12:30 | NUR ---
PT READY FOR DISCHARGE. STATES RIDE HERE. PT DISCHARGED IN STABLE CONDITION VIA WHEELCHAIR PER LACER AND TIER TO PRIVATE VEHICLE.
== END 2020-12-29 12:30 | disposition home or self-care (01) | DRG 806 ==
LOC: D.LDO 20:13 → D.LD 20:27
PROVIDERS: ADMIT Obstetrics & Gynecology; ATTEND Obstetrics & Gynecology
PROC: 10E0XZZ Delivery of Products of Conception, External Approach (ICD-10-PCS; principal; 2020-12-28)
DX: O42.013 Preterm premature rupture of membranes, onset of labor within 24 hours of rupture, third trimester (principal); O72.1 Other immediate postpartum hemorrhage; Z37.0 Single live birth; Z3A.36 36 weeks gestation of pregnancy; O13.4 Gestational [pregnancy-induced] hypertension without significant proteinuria, complicating childbirth; O32.6XX0 Maternal care for compound presentation, not applicable or unspecified; O70.0 First degree perineal laceration during delivery; O90.81 Anemia of the puerperium; D64.9 Anemia, unspecified